=== PATIENT | female | born 1980 | race Caucasian/White ===

== ENCOUNTER 2017-03-28 21:48 | Emergency (ER) | payer OTHER ==
--- NOTE | 2017-03-28 22:52 | ED ---
Chest Pain HPI - General Chief Complaint: Abdominal Pain Stated Complaint: Abd Pain Time Seen by Provider: 03/28/17 22:28 Source: patient, family Mode of arrival: ambulatory Limitations: no limitations - History of Present Illness Initial Comments: Patient is a 37-year-old woman who presents to be evaluated for left upper chest pain. She states that it started 6 days ago now. She denies any inciting trauma. She states that she was at rest. Patient describes it as a constant, aching that is moderate intensity. The patient has not discovered any worsening or relieving factors and she also denies any associated symptoms. She does note that the chest wall is tender when she presses. Complaint: chest pain Onset/Timin -: days(s) Onset: during rest Pain Location: left chest Pain Radiation: back Severity: moderate Quality: aching Consistency: constant Improves With: nothing Worsens With: nothing Treatments Prior to Arrival: none - Related Data Home Medications Medication Instructions Recorded Confirmed Atorvastatin [Lipitor] 40 mg PO QAM 09/12/15 03/28/17 EPINEPHrine (Auto Inject) [Epipen] 1 injection IM DAILY PRN 09/12/15 03/28/17 Atomoxetine HCl [Strattera] 40 mg PO DAILY@1300 03/28/17 03/28/17 Atomoxetine HCl [Strattera] 60 mg PO DAILY 03/28/17 03/28/17 Omeprazole 20 mg PO DAILY 03/28/17 03/28/17 Phentermine HCl [Adipex-P] 37.5 mg PO QAM 03/28/17 03/28/17 glipiZIDE [Glucotrol] 2.5 mg PO DAILY 03/28/17 03/28/17 Previous Rx's Medication Instructions Recorded Ibuprofen [Motrin] 600 mg PO Q8HR PRN #20 tab 03/29/17 Allergies Allergy/AdvReac Type Severity Reaction Status Date / Time Penicillins Allergy Rash/Hives Verified 03/28/17 22:52 Sulfa (Sulfonamide Allergy Unknown Verified 03/28/17 22:52 Antibiotics) Review of Systems ROS Statement: Those systems with pertinent positive or pertinent negative responses have been documented in the HPI. ROS Other: All systems not noted in ROS Statement are negative. Constitutional: Denies: fever, chills, weakness Respiratory: Denies: cough, dyspnea Cardiovascular: Reports: chest pain. Denies: palpitations, orthopnea, edema, syncope Gastrointestinal: Denies: abdominal pain, nausea, vomiting, melena, hematochezia Genitourinary: Denies: dysuria, hematuria Musculoskeletal: Denies: back pain Skin: Denies: rash Neurological: Denies: headache, weakness, numbness EKG Findings - EKG Comments: EKG Findings:: Low voltage QRS complexes - EKG Results: EKG: interpreted by ALEXD, sinus rhythm (Rate approximate 73 bpm), normal ST/T - Blocks, [place], Hypertrophy, ST Abn: QRS axis and voltage: right axis deviation (+90 to +180) Past Medical History Past Medical History: Asthma, Diabetes Mellitus, Hyperlipidemia Additional Past Medical History / Comment(s): pre diabetic per pt History of Any Multi-Drug Resistant Organisms: None Reported Past Surgical History: Section, Cholecystectomy, Ear Surgery, Tubal Ligation Additional Past Surgical History / Comment(s): BILATERAL EAR TUBES; RECONSTRUCTION OF EAR DRUM OF RIGHT EAR. TUBAL WITH ESSURE. Past Anesthesia/Blood Transfusion Reactions: No Reported Reaction Past Psychological History: ADD/ADHD, Depression Smoking Status: Never smoker Past Alcohol Use History: None Reported Past Drug Use History: None Reported - Past Family History Mother Family Medical History: Coronary Artery Disease (CAD), CVA/TIA, Diabetes Mellitus General Exam Limitations: no limitations General appearance: alert, in no apparent distress, obese Head exam: Present: atraumatic, normocephalic Eye exam: Present: normal appearance. Absent: scleral icterus, conjunctival injection ENT exam: Present: normal oropharynx Neck exam: Present: normal inspection, full ROM Respiratory exam: Present: normal lung sounds bilaterally, chest wall tenderness. Absent: respiratory distress, wheezes, rales, rhonchi, stridor Cardiovascular Exam: Present: regular rate, normal rhythm, normal heart sounds. Absent: systolic murmur, diastolic murmur, rubs, gallop GI/Abdominal exam: Present: soft. Absent: distended, tenderness, guarding, rebound, mass Extremities exam: Present: normal inspection, normal capillary refill. Absent: pedal edema, calf tenderness Back exam: Present: normal inspection. Absent: CVA tenderness (R), CVA tenderness (L) Neurological exam: Present: alert Skin exam: Present: warm, dry, intact, normal color. Absent: rash, cyanosis, diaphoretic, erythema, petechiae, pallor, mottled Course Vital Signs 03/28/17 21:52 Temperature 97.7 F Pulse Rate 89 Respiratory 18 Rate Disposition Clinical Impression: Chest wall pain Disposition: HOME SELF-CARE Condition: Good Instructions: Chest Wall Pain (ED) Prescriptions: Ibuprofen [Motrin] 600 mg PO Q8HR PRN #20 tab PRN Reason: Pain Referrals: Victoriano Causey MD [Primary Care Provider] - 1-2 days
[2017-03-28 22:56] LABS: Basophils # (A) 0.1 k/uL (0-0.2); Basophils % (A) 1 %; CH 31.8; CHCM 33.7; Eosinophils # (A) 0.3 k/uL (0-0.7); Eosinophils % (A) 3 %; HCT 41.8 % (34.0-46.0); HGB 13.9 gm/dL (11.4-16.0); Luc # (Auto) 0.08; Luc % (Auto) 1; Lymphocytes # (A) 3.4 k/uL (1.0-4.8); Lymphocytes % (A) 36 %; MCH 31.7 pg (25.0-35.0); MCHC 33.4 g/dL (31.0-37.0); MCV 94.9 fL (80.0-100.0); Mean Platelet Volume 6.7; Monocytes # (A) 0.3 k/uL (0-1.0); Monocytes % (A) 3 %; Neutrophils # (A) 5.3 k/uL (1.3-7.7); Neutrophils % (A) 56 %; RDW 13.2 % (11.5-15.5); WBC 9.3 k/uL (3.8-10.6); WBC (Perox) 9.19
[2017-03-28 23:12] LABS: ALT 28 U/L (9-52); AST 15 U/L (14-36); Alkaline Phosphatase 94 U/L (38-126); Amylase 42 U/L (30-110); Anion Gap 10 mmol/L; Blood Urea Nitrogen 16 mg/dL (7-17); Calcium 9.4 mg/dL (8.4-10.2); Carbon Dioxide 21 mmol/L (22-30); Chloride 109 mmol/L (98-107); Glucose 143 mg/dL (74-99); Magnesium 1.9 mg/dL (1.6-2.3); Non-African American GFR(MDRD) >60 (>60 ml/min/1.73 sqM); Potassium 3.8 mmol/L (3.5-5.1); Sodium 140 mmol/L (137-145); Total Bilirubin 0.2 mg/dL (0.2-1.3); Total Protein 6.8 g/dL (6.3-8.2)
--- NOTE | 2017-03-28 23:12 | XR ---
EXAMINATION TYPE: XR chest 2V DATE OF EXAM: 03/28/2017 COMPARISON: NONE HISTORY: Chest pain TECHNIQUE: Frontal and lateral views of the chest are obtained. FINDINGS: Heart and mediastinum are normal. Lungs are clear. Diaphragm is normal. Bony thorax is int act. The pulmonary vascularity is normal. IMPRESSION: Normal chest
[2017-03-29 01:02] VITALS: BP 123/74; PULSE 90; RESP 16; TEMP 98
== END 2017-03-29 00:47 | disposition home or self-care (01) ==
LOC: EC 21:48
DX: R07.89 Other chest pain (principal); F90.9 Attention-deficit hyperactivity disorder, unspecified type; E66.9 Obesity, unspecified; E78.5 Hyperlipidemia, unspecified; Z90.49 Acquired absence of other specified parts of digestive tract; Z68.38 Body mass index [BMI] 38.0-38.9, adult; Z88.0 Allergy status to penicillin; Z88.2 Allergy status to sulfonamides; Z79.84 Long term (current) use of oral hypoglycemic drugs; Z79.899 Other long term (current) drug therapy
CPT/HCPCS: 36415; 71020; 80053; 82150; 83690; 83735; 84484; 85025; 85379; 93005; 99284

== ENCOUNTER 2017-12-22 13:11 | Emergency (ER) | payer OTHER ==
[2017-12-22 13:33] VITALS: BP 136/87; PULSE 86; RESP 18; TEMP 98
[2017-12-22] MEDS ORDERED: DIPH,PERTUS(ACELL)TETVAC-LF 0.5 ML VIAL IM ONE (13:46)
--- NOTE | 2017-12-22 13:51 | ED ---
General Adult HPI - General Chief complaint: Wound/Laceration Stated complaint: lac rt upper arm Time Seen by Provider: 12/22/17 13:33 Source: patient, RN notes reviewed Mode of arrival: ambulatory Limitations: no limitations - History of Present Illness Initial comments: Patient 37-year-old female presenting to the emergency room today with a chief complaint of a laceration to the left arm. She states she was using a knife cutting a tie when he slipped causing laceration to the upper arm. Patient states tetanus is not up-to-date. She denies any other complaints or symptoms at this time. Patient denies any recent fever, chills, shortness of breath, chest pain, back pain, abdominal pain, nausea or vomiting, headaches or visual changes, or any other complaints. - Related Data Home Medications Medication Instructions Recorded Confirmed Atorvastatin [Lipitor] 40 mg PO QAM 09/12/15 03/28/17 EPINEPHrine (Auto Inject) [Epipen] 1 injection IM DAILY PRN 09/12/15 03/28/17 Atomoxetine HCl [Strattera] 40 mg PO DAILY@1300 03/28/17 03/28/17 Atomoxetine HCl [Strattera] 60 mg PO DAILY 03/28/17 03/28/17 Omeprazole 20 mg PO DAILY 03/28/17 03/28/17 Phentermine HCl [Adipex-P] 37.5 mg PO QAM 03/28/17 03/28/17 glipiZIDE [Glucotrol] 2.5 mg PO DAILY 03/28/17 03/28/17 Previous Rx's Medication Instructions Recorded Ibuprofen [Motrin] 600 mg PO Q8HR PRN #20 tab 03/29/17 Cephalexin [Keflex] 500 mg PO Q12HR 7 Days cap 12/22/17 Allergies Allergy/AdvReac Type Severity Reaction Status Date / Time Sulfa (Sulfonamide Allergy Unknown Verified 12/22/17 13:33 Antibiotics) Review of Systems ROS Statement: Those systems with pertinent positive or pertinent negative responses have been documented in the HPI. ROS Other: All systems not noted in ROS Statement are negative. Past Medical History Past Medical History: Asthma, Diabetes Mellitus, Hyperlipidemia Additional Past Medical History / Comment(s): pre diabetic per pt History of Any Multi-Drug Resistant Organisms: None Reported Past Surgical History: Section, Cholecystectomy, Ear Surgery, Hysterectomy, Tubal Ligation Additional Past Surgical History / Comment(s): BILATERAL EAR TUBES; RECONSTRUCTION OF EAR DRUM OF RIGHT EAR. TUBAL WITH ESSURE. Past Anesthesia/Blood Transfusion Reactions: No Reported Reaction Past Psychological History: ADD/ADHD, Depression Smoking Status: Never smoker Past Alcohol Use History: None Reported Past Drug Use History: None Reported - Past Family History Mother Family Medical History: Coronary Artery Disease (CAD), CVA/TIA, Diabetes Mellitus General Exam - General Exam Comments Initial Comments: General: The patient is awake and alert, in no distress, and does not appear acutely ill. Neck: The neck is supple, there is no tenderness or JVD. Musculoskeletal: Full range of motion. Sensation intact. Radial pulse 2+. Strength 5/5. Neurological: A&O x 3. CN II-XII intact, There are no obvious motor or sensory deficits. Coordination appears grossly intact. Speech is normal. Skin: 1 cm linear laceration to the left upper arm. Psychiatric: Normal mood and affect. Limitations: no limitations Course Vital Signs 12/22/17 13:28 Temperature 98.0 F Pulse Rate 86 Respiratory 18 Rate Blood Pressure 136/87 O2 Sat by Pulse 99 Oximetry Procedures - Procedures Initial comment: 1 cm linear laceration to the left upper arm. No active bleeding.The skin was anesthetized with 1% lidocaine. The laceration was then cleansed with Betadine and irrigated with normal saline. The wound was inspected, and there was no evidence of injury to deep structures. No foreign body was noted in the wound. A total of 2 skin sutures were placed utilizing 4-0 nylon. Disposition Clinical Impression: Laceration Disposition: HOME SELF-CARE Condition: Good Instructions: Laceration (ED) Additional Instructions: Please return to the emergency room in 8-10 days to have sutures removed. Please watch for any signs of infection which may include increased pain, swelling, redness, fever or chills. Please return to emergency room for any signs of infection do occur. Please use clean soap and water over the area to prevent scabbing over your stitches. Please leave wound covered for the first 24-48 hours and then leave wound open to air. Please return to the emergency room for any other concerns. Prescriptions: Cephalexin [Keflex] 500 mg PO Q12HR 7 Days cap Is patient prescribed a controlled substance at d/c from ED?: No Referrals: Victoriano Causey MD [Primary Care Provider] - 1-2 days Time of Disposition: 13:50
== END 2017-12-22 14:14 | disposition home or self-care (01) ==
LOC: EC 13:11
DX: S41.112A Laceration without foreign body of left upper arm, initial encounter (principal); E11.9 Type 2 diabetes mellitus without complications; E78.5 Hyperlipidemia, unspecified; F90.9 Attention-deficit hyperactivity disorder, unspecified type; F32.9 Major depressive disorder, single episode, unspecified; Z23 Encounter for immunization; Z79.84 Long term (current) use of oral hypoglycemic drugs; Z79.899 Other long term (current) drug therapy; Z88.2 Allergy status to sulfonamides; W26.0XXA Contact with knife, initial encounter
CPT/HCPCS: 12001; 90471; 90715; 99282

== ENCOUNTER 2018-04-08 00:28 | Emergency (ER) | payer OTHER ==
[2018-04-08] MEDS ORDERED: KETOROLAC 30 MG/ML 1 ML VIAL IVP STA (01:09)
[2018-04-08] MEDS ORDERED: SODIUM CHLORIDE 0.9% 1,000 ML IV ONE (01:09)
--- NOTE | 2018-04-08 01:40 | ED ---
Abdominal Pain HPI - General Chief Complaint: Abdominal Pain Stated Complaint: Kidney infection Time Seen by Provider: 04/08/18 01:04 Source: patient Mode of arrival: ambulatory Limitations: no limitations - History of Present Illness Initial Comments: This is a 38-year-old female who presents emergency department for left lower quadrant abdominal pain. She states that it initially started with left lower back pain for the last 3 weeks however tonight she states the pain has worsened and is now located in her left lower quadrant. She does admit to some dysuria and urinary frequency as well. She does not eyes any pain in the flank. No fevers or chills. No nausea or vomiting or diarrhea. No vaginal bleeding or discharge. She states that the pain got severe enough that she wanted to be evaluated. No other acute complaints. - Related Data Home Medications Medication Instructions Recorded Confirmed Atorvastatin [Lipitor] 40 mg PO QAM 09/12/15 03/28/17 EPINEPHrine (Auto Inject) [Epipen] 1 injection IM DAILY PRN 09/12/15 03/28/17 Atomoxetine HCl [Strattera] 40 mg PO DAILY@1300 03/28/17 03/28/17 Atomoxetine HCl [Strattera] 60 mg PO DAILY 03/28/17 03/28/17 Omeprazole 20 mg PO DAILY 03/28/17 03/28/17 Phentermine HCl [Adipex-P] 37.5 mg PO QAM 03/28/17 03/28/17 glipiZIDE [Glucotrol] 2.5 mg PO DAILY 03/28/17 03/28/17 Previous Rx's Medication Instructions Recorded Ibuprofen [Motrin] 600 mg PO Q8HR PRN #20 tab 03/29/17 Cephalexin [Keflex] 500 mg PO Q12HR 7 Days cap 12/22/17 Nitrofurantoin Monohyd/M-Cryst 100 mg PO Q12HR #13 cap 04/08/18 [Macrobid] Allergies Allergy/AdvReac Type Severity Reaction Status Date / Time Sulfa (Sulfonamide Allergy Unknown Verified 04/08/18 00:48 Antibiotics) Review of Systems ROS Statement: Those systems with pertinent positive or pertinent negative responses have been documented in the HPI. ROS Other: All systems not noted in ROS Statement are negative. Past Medical History Past Medical History: Asthma, Diabetes Mellitus, Hyperlipidemia Additional Past Medical History / Comment(s): pre diabetic per pt History of Any Multi-Drug Resistant Organisms: None Reported Past Surgical History: Section, Cholecystectomy, Ear Surgery, Hysterectomy, Tubal Ligation Additional Past Surgical History / Comment(s): BILATERAL EAR TUBES; RECONSTRUCTION OF EAR DRUM OF RIGHT EAR. TUBAL WITH ESSURE. Past Anesthesia/Blood Transfusion Reactions: No Reported Reaction Past Psychological History: ADD/ADHD, Depression Smoking Status: Never smoker Past Alcohol Use History: None Reported Past Drug Use History: None Reported - Past Family History Mother Family Medical History: Coronary Artery Disease (CAD), CVA/TIA, Diabetes Mellitus General Exam - General Exam Comments Initial Comments: Constitutional: Awake alert Appears comfortable Head: Normocephalic atraumatic Eyes: no conjunctival injection No scleral icterus EOMI Neck: No JVD Supple Heart: Regular rate rhythm normal S1-S2 no murmurs Lungs: Clear to auscultation bilaterally No wheezing No rales Abdomen: Soft nondistended tenderness in the left lower quadrant without rebound or guarding Extremities: Non edematous DP pulses intact Radial pulses intact Muscle skeletal: Patient has some tenderness to her left lower back. No midline tenderness. Neuro: A&Ox3 No focal neurologic deficits Psych: Appropriate mood and affect Limitations: no limitations Course Vital Signs 04/08/18 00:44 Temperature 98.2 F Pulse Rate 106 H Respiratory 16 Rate Blood Pressure 133/90 O2 Sat by Pulse 95 Oximetry Medical Decision Making - Medical Decision Making This is a 38-year-old female who presents emergency department for left lower back pain and left lower quadrant pain. She also had dysuria. The patient was found have urinary tract infection on her blood work. CT of the abdomen was unremarkable. The patient was improved after Toradol. She will be sent home on Macrobid. She is ALLERGIC to sulfa. The patient understood and agreed with this plan. Instructed to return should worsening pain, fevers, chills, or any new or worsening symptoms. All questions answered. - Lab Data Result diagrams: 04/08/18 01:15 04/08/18 01:15 Lab Results 04/08/18 04/08/18 04/08/18 Range/Units 01:15 01:15 01:15 WBC 10.0 (3.8-10.6) k/uL RBC 4.79 (3.80-5.40) m/uL Hgb 15.6 (11.4-16.0) gm/dL Hct 44.5 (34.0-46.0) % MCV 92.8 (80.0-100.0) fL MCH 32.6 (25.0-35.0) pg MCHC 35.1 (31.0-37.0) g/dL RDW 13.6 (11.5-15.5) % Plt Count 329 (150-450) k/uL Neutrophils % 53 % Lymphocytes % 39 % Monocytes % 4 % Eosinophils % 2 % Basophils % 1 % Neutrophils # 5.3 (1.3-7.7) k/uL Lymphocytes # 3.9 (1.0-4.8) k/uL Monocytes # 0.4 (0-1.0) k/uL Eosinophils # 0.2 (0-0.7) k/uL Basophils # 0.1 (0-0.2) k/uL Sodium 138 (137-145) mmol/L Potassium 4.1 (3.5-5.1) mmol/L Chloride 103 (98-107) mmol/L Carbon Dioxide 27 (22-30) mmol/L Anion Gap 8 mmol/L BUN 23 H (7-17) mg/dL Creatinine 0.83 (0.52-1.04) mg/dL Est GFR (CKD-EPI)AfAm >90 (>60 ml/min/1.73 sqM) Est GFR (CKD-EPI)NonAf >90 (>60 ml/min/1.73 sqM) Glucose 170 H (74-99) mg/dL Calcium 10.1 (8.4-10.2) mg/dL Total Bilirubin 0.6 (0.2-1.3) mg/dL AST 90 H (14-36) U/L ALT 113 H (9-52) U/L Alkaline Phosphatase 88 (38-126) U/L Total Protein 7.9 (6.3-8.2) g/dL Albumin 4.4 (3.5-5.0) g/dL Urine Color Urine Appearance (Clear) Urine pH (5.0-8.0) Ur Specific [place] (1.001-1.035) Urine Protein (Negative) Urine Glucose (UA) (Negative) Urine Ketones (Negative) Urine Blood (Negative) Urine Nitrite (Negative) Urine Bilirubin (Negative) Urine Urobilinogen (<2.0) mg/dL Ur Leukocyte Esterase (Negative) Urine RBC (0-5) /hpf Urine WBC (0-5) /hpf Ur Squamous Epith Cells (0-4) /hpf Hyaline Casts (0-2) /lpf Urine Mucus (None) /hpf Urine HCG, Qual Not Detected (Not Detectd) 04/08/18 Range/Units 01:15 WBC (3.8-10.6) k/uL RBC (3.80-5.40) m/uL Hgb (11.4-16.0) gm/dL Hct (34.0-46.0) % MCV (80.0-100.0) fL MCH (25.0-35.0) pg MCHC (31.0-37.0) g/dL RDW (11.5-15.5) % Plt Count (150-450) k/uL Neutrophils % % Lymphocytes % % Monocytes % % Eosinophils % % Basophils % % Neutrophils # (1.3-7.7) k/uL Lymphocytes # (1.0-4.8) k/uL Monocytes # (0-1.0) k/uL Eosinophils # (0-0.7) k/uL Basophils # (0-0.2) k/uL Sodium (137-145) mmol/L Potassium (3.5-5.1) mmol/L Chloride (98-107) mmol/L Carbon Dioxide (22-30) mmol/L Anion Gap mmol/L BUN (7-17) mg/dL Creatinine (0.52-1.04) mg/dL Est GFR (CKD-EPI)AfAm (>60 ml/min/1.73 sqM) Est GFR (CKD-EPI)NonAf (>60 ml/min/1.73 sqM) Glucose (74-99) mg/dL Calcium (8.4-10.2) mg/dL Total Bilirubin (0.2-1.3) mg/dL AST (14-36) U/L ALT (9-52) U/L Alkaline Phosphatase (38-126) U/L Total Protein (6.3-8.2) g/dL Albumin (3.5-5.0) g/dL Urine Color Yellow Urine Appearance Cloudy H (Clear) Urine pH 5.5 (5.0-8.0) Ur Specific [place] 1.034 (1.001-1.035) Urine Protein 1+ H (Negative) Urine Glucose (UA) Trace H (Negative) Urine Ketones Trace H (Negative) Urine Blood Trace H (Negative) Urine Nitrite Negative (Negative) Urine Bilirubin Negative (Negative) Urine Urobilinogen 3.0 (<2.0) mg/dL Ur Leukocyte Esterase Large H (Negative) Urine RBC 4 (0-5) /hpf Urine WBC 23 H (0-5) /hpf Ur Squamous Epith Cells 42 H (0-4) /hpf Hyaline Casts 8 H (0-2) /lpf Urine Mucus Many H (None) /hpf Urine HCG, Qual (Not Detectd) Disposition Clinical Impression: UTI (urinary tract infection) Disposition: HOME SELF-CARE Condition: Stable Instructions: Urinary Tract Infection in Women (DC) Prescriptions: Nitrofurantoin Monohyd/M-Cryst [Macrobid] 100 mg PO Q12HR #13 cap Is patient prescribed a controlled substance at d/c from ED?: No Referrals: Victoriano Causey MD [Primary Care Provider] - 1-2 days
[2018-04-08 01:41] LABS: Appearance,Urine Cloudy (Clear); Bilirubin,Urine Negative (Negative); Blood,Urine Trace (Negative); Color,Urine Yellow; Glucose,Urine (UA) Trace (Negative); Hyaline Casts,Urine 8 /lpf (0-2); Ketones,Urine Trace (Negative); Leukocyte Esterase,Urine Large (Negative); Mucus,Urine Many /hpf; Nitrite,Urine Negative (Negative); PH, Urine 5.5 (5.0-8.0); Protein,Urine 1+ (Negative); RBC,Urine 4 /hpf (0-5); Specific Gravity,Urine 1.034 (1.001-1.035); Squamous Epithelial Cell,Urine 42 /hpf (0-4)
[2018-04-08 01:45] LABS: Basophils # (A) 0.1 k/uL (0-0.2); Basophils % (A) 1 %; Eosinophils # (A) 0.2 k/uL (0-0.7); Eosinophils % (A) 2 %; HCT 44.5 % (34.0-46.0); HGB 15.6 gm/dL (11.4-16.0); Lymphocytes # (A) 3.9 k/uL (1.0-4.8); Lymphocytes % (A) 39 %; MCH 32.6 pg (25.0-35.0); MCHC 35.1 g/dL (31.0-37.0); MCV 92.8 fL (80.0-100.0); Mean Platelet Volume 6.4; Monocytes # (A) 0.4 k/uL (0-1.0); Monocytes % (A) 4 %; Neutrophils # (A) 5.3 k/uL (1.3-7.7); Neutrophils % (A) 53 %; Platelet Count 329 k/uL (150-450); RBC 4.79 m/uL (3.80-5.40); RDW 13.6 % (11.5-15.5)
[2018-04-08 01:49] LABS: ALT 113 U/L (9-52); AST 90 U/L (14-36); Albumin 4.4 g/dL (3.5-5.0); Alkaline Phosphatase 88 U/L (38-126); Anion Gap 8 mmol/L; Blood Urea Nitrogen 23 mg/dL (7-17); Calcium 10.1 mg/dL (8.4-10.2); Carbon Dioxide 27 mmol/L (22-30); Chloride 103 mmol/L (98-107); Glucose 170 mg/dL (74-99); Potassium 4.1 mmol/L (3.5-5.1); Sodium 138 mmol/L (137-145); Total Bilirubin 0.6 mg/dL (0.2-1.3); Total Protein 7.9 g/dL (6.3-8.2)
--- NOTE | 2018-04-08 02:01 | CT ---
EXAMINATION TYPE: CT abdomen pelvis wo con DATE OF EXAM: 04/08/2018 COMPARISON: None HISTORY: LLQ Pain CT DLP: 1214 mGycm Automated exposure control for dose reduction was used. TECHNIQUE: Helical acquisition of images was performed from the lung bases through the pelvis. FINDINGS: Lung bases are clear of consolidation. There is no pleural effusion. Heart size is normal. There is n o pericardial effusion. There is small hiatal hernia. Stomach appears normal. There is probably some fatty infiltration of the liver. Spleen appears normal. There is no pancreatic mass. There are clips from cholecystectomy. Bile ducts are not dilated. There is no adrenal mass. Kidneys have normal size and contour. There is no hydronephrosis. Ureters a re not dilated. There is no retroperitoneal adenopathy. The appendix appears normal. Bladder distends smoothly. There is no inguinal hernia. There is no free fluid in the pelvis. There i s hysterectomy. There are a few sigmoid diverticula. There is no evidence of diverticulitis. There is no mesenteric edema or adenopathy. There is no evidence of a bowel obstruction. There is no evidence of free air. The bony pelvis appears intact. Lumbar spine is intact. There is no compression fractur e. IMPRESSION: NO RENAL STONE OR OBSTRUCTION. NORMAL APPENDIX. NO SIGN OF ACUTE ABDOMEN AND PELVIS. MINIMAL FATTY IN FILTRATION OF THE LIVER.
[2018-04-08] MEDS ORDERED: NITROFURANTOIN MONOHYD/M-CRYST 100 MG CAP PO STA (02:22)
[2018-04-08 02:40] VITALS: BP 112/56; PULSE 96; RESP 18; TEMP 98.3
== END 2018-04-08 02:40 | disposition home or self-care (01) ==
LOC: EC 00:28
DX: N39.0 Urinary tract infection, site not specified (principal); E78.5 Hyperlipidemia, unspecified; F90.9 Attention-deficit hyperactivity disorder, unspecified type; F32.9 Major depressive disorder, single episode, unspecified; Z88.2 Allergy status to sulfonamides; Z79.84 Long term (current) use of oral hypoglycemic drugs; Z79.899 Other long term (current) drug therapy; Z90.49 Acquired absence of other specified parts of digestive tract
CPT/HCPCS: 36415; 80053; 85025; 81001; 81025; 87086; 74176; 99284; 96374; 96361; J1885

== ENCOUNTER 2018-04-12 16:19 | Emergency (ER) | payer OTHER ==
[2018-04-12 16:32] VITALS: TEMP 97.6
--- NOTE | 2018-04-12 16:59 | ED ---
General Adult HPI - General Chief complaint: Back Pain/Injury Stated complaint: Lower back pain Time Seen by Provider: 04/12/18 16:38 Source: patient, RN notes reviewed Mode of arrival: ambulatory Limitations: no limitations - History of Present Illness Initial comments: Patient is a 38-year-old female who presents the emergency department with complaints of left lower back pain for the past 4 weeks. Patient was here 4 days ago on 04/08/2018 and was found to have a UTI and put on Macrobid. Patient reports that she has been taking the Macrobid as prescribed for 5 days. She reports that her urinary symptoms and LLQ pain have resolved, but the back pain has remained. Patient denies any recent fever, night sweats, shortness of breath, chest pain, abdominal pain, numbness or tingling, saddle anesthesia, bowel or bladder incontinence, radiation of pain, dysuria or hematuria, constipation or diarrhea, headaches or visual changes, or any other complaints. - Related Data Home Medications Medication Instructions Recorded Confirmed Atorvastatin [Lipitor] 40 mg PO QAM 09/12/15 03/28/17 EPINEPHrine (Auto Inject) [Epipen] 1 injection IM DAILY PRN 09/12/15 03/28/17 Atomoxetine HCl [Strattera] 40 mg PO DAILY@1300 03/28/17 03/28/17 Atomoxetine HCl [Strattera] 60 mg PO DAILY 03/28/17 03/28/17 Omeprazole 20 mg PO DAILY 03/28/17 03/28/17 Phentermine HCl [Adipex-P] 37.5 mg PO QAM 03/28/17 03/28/17 glipiZIDE [Glucotrol] 2.5 mg PO DAILY 03/28/17 03/28/17 Previous Rx's Medication Instructions Recorded Ibuprofen [Motrin] 600 mg PO Q8HR PRN #20 tab 03/29/17 Cephalexin [Keflex] 500 mg PO Q12HR 7 Days cap 12/22/17 Nitrofurantoin Monohyd/M-Cryst 100 mg PO Q12HR #13 cap 04/08/18 [Macrobid] Allergies Allergy/AdvReac Type Severity Reaction Status Date / Time Penicillins Allergy Unknown Verified 04/12/18 16:33 Sulfa (Sulfonamide Allergy Unknown Verified 04/12/18 16:32 Antibiotics) Review of Systems ROS Statement: Those systems with pertinent positive or pertinent negative responses have been documented in the HPI. ROS Other: All systems not noted in ROS Statement are negative. Past Medical History Past Medical History: Asthma, Diabetes Mellitus, Hyperlipidemia Additional Past Medical History / Comment(s): pre diabetic per pt History of Any Multi-Drug Resistant Organisms: None Reported Past Surgical History: Section, Cholecystectomy, Ear Surgery, Hysterectomy, Tubal Ligation Additional Past Surgical History / Comment(s): BILATERAL EAR TUBES; RECONSTRUCTION OF EAR DRUM OF RIGHT EAR. TUBAL WITH ESSURE. Past Anesthesia/Blood Transfusion Reactions: No Reported Reaction Past Psychological History: ADD/ADHD, Depression Smoking Status: Never smoker Past Alcohol Use History: None Reported Past Drug Use History: None Reported - Past Family History Mother Family Medical History: Coronary Artery Disease (CAD), CVA/TIA, Diabetes Mellitus General Exam Limitations: no limitations General appearance: alert, in no apparent distress Head exam: Present: atraumatic, normocephalic Eye exam: Present: normal appearance Respiratory exam: Present: normal lung sounds bilaterally Cardiovascular Exam: Present: regular rate, normal rhythm GI/Abdominal exam: Present: soft, other (No tenderness to palpation. Nondistended.) Back exam: Present: normal inspection, full ROM, tenderness (Left lower back pain to palpation. No midline pain.) Neurological exam: Present: alert, oriented X3 Psychiatric exam: Present: normal affect, normal mood Skin exam: Present: warm, dry Course Vital Signs 04/12/18 16:30 Temperature 97.6 F Pulse Rate 107 H Respiratory 20 Rate Blood Pressure 159/81 O2 Sat by Pulse 96 Oximetry Medical Decision Making - Medical Decision Making Patient was here 04/08/2018. CT abdomen/pelvis from 04/08/2018 reviewed ( negative CT). She continues to have left lower back pain however her left lower quadrants pain and urinary symptoms have resolved. Patient given Toradol here, which improved her pain. UA is negative for UTI. Urine culture from reviewed an found to be negative. Case discussed in detail with attending physician Dr. Walker. - Lab Data Lab Results 04/12/18 Range/Units 17:15 Urine Color Yellow Urine Appearance Cloudy H (Clear) Urine pH 5.0 (5.0-8.0) Ur Specific [place] 1.019 (1.001-1.035) Urine Protein Negative (Negative) Urine Glucose (UA) Negative (Negative) Urine Ketones Negative (Negative) Urine Blood Negative (Negative) Urine Nitrite Negative (Negative) Urine Bilirubin Negative (Negative) Urine Urobilinogen <2.0 (<2.0) mg/dL Ur Leukocyte Esterase Negative (Negative) Urine WBC 1 (0-5) /hpf Ur Squamous Epith Cells 3 (0-4) /hpf Urine Bacteria Rare H (None) /hpf Hyaline Casts 1 (0-2) /lpf Urine Mucus Occasional H (None) /hpf Disposition Clinical Impression: Back pain Disposition: HOME SELF-CARE Condition: Good Instructions: Back Pain (ED) Additional Instructions: Follow-up with PCP in 2 days. Return to emergency department if symptoms worsen or any other concerns. Is patient prescribed a controlled substance at d/c from ED?: No Referrals: Victoriano Causey MD [Primary Care Provider] - 1-2 days Time of Disposition: 18:12
[2018-04-12] MEDS ORDERED: KETOROLAC 60 MG/2 ML VIAL IM STA (17:37)
[2018-04-12 17:42] LABS: Appearance,Urine Cloudy (Clear); Bacteria,Urine Rare /hpf; Bilirubin,Urine Negative (Negative); Blood,Urine Negative (Negative); Color,Urine Yellow; Glucose,Urine (UA) Negative (Negative); Hyaline Casts,Urine 1 /lpf (0-2); Ketones,Urine Negative (Negative); Leukocyte Esterase,Urine Negative (Negative); Mucus,Urine Occasional /hpf; Nitrite,Urine Negative (Negative); Protein,Urine Negative (Negative); Specific Gravity,Urine 1.019 (1.001-1.035); Squamous Epithelial Cell,Urine 3 /hpf (0-4); Urobilinogen,Urine <2.0 mg/dL (<2.0); WBC,Urine 1 /hpf (0-5)
[2018-04-12 18:17] VITALS: BP 136/79; PULSE 88; RESP 16
== END 2018-04-12 18:20 | disposition home or self-care (01) ==
LOC: EC 16:19
DX: M54.5 Low back pain (principal); E11.9 Type 2 diabetes mellitus without complications; E78.5 Hyperlipidemia, unspecified; F90.9 Attention-deficit hyperactivity disorder, unspecified type; F32.9 Major depressive disorder, single episode, unspecified; Z79.84 Long term (current) use of oral hypoglycemic drugs; Z79.899 Other long term (current) drug therapy; Z88.0 Allergy status to penicillin; Z88.2 Allergy status to sulfonamides; Z90.710 Acquired absence of both cervix and uterus
CPT/HCPCS: 81001; 99284; 96372; J1885

== ENCOUNTER 2018-08-11 20:42 | Emergency (ER) | payer OTHER ==
[2018-08-11] MEDS ORDERED: SODIUM CHLORIDE 0.9% 500 ML 500 ML IV ONE (21:21)
[2018-08-11 21:32] LABS: Basophils # (A) 0.1 k/uL (0-0.2); Basophils % (A) 1 %; Eosinophils # (A) 0.2 k/uL (0-0.7); Eosinophils % (A) 2 %; HCT 43.3 % (34.0-46.0); HGB 14.7 gm/dL (11.4-16.0); Lymphocytes # (A) 3.3 k/uL (1.0-4.8); Lymphocytes % (A) 34 %; MCH 31.2 pg (25.0-35.0); MCV 91.9 fL (80.0-100.0); Mean Platelet Volume 6.5; Monocytes # (A) 0.3 k/uL (0-1.0); Monocytes % (A) 3 %; Neutrophils # (A) 5.8 k/uL (1.3-7.7); Neutrophils % (A) 59 %; Platelet Count 265 k/uL (150-450); RBC 4.71 m/uL (3.80-5.40); RDW 12.8 % (11.5-15.5); WBC 9.8 k/uL (3.8-10.6)
[2018-08-11 21:43] LABS: ALT 116 U/L (9-52); AST 91 U/L (14-36); Albumin 4.2 g/dL (3.5-5.0); Alkaline Phosphatase 97 U/L (38-126); Anion Gap 11 mmol/L; Blood Urea Nitrogen 12 mg/dL (7-17); Calcium 9.6 mg/dL (8.4-10.2); Carbon Dioxide 23 mmol/L (22-30); Chloride 104 mmol/L (98-107); Glucose 263 mg/dL (74-99); Lipase 127 U/L (23-300); Sodium 138 mmol/L (137-145); Total Bilirubin 0.9 mg/dL (0.2-1.3); Total Protein 6.9 g/dL (6.3-8.2)
--- NOTE | 2018-08-11 22:41 | CT ---
EXAM: CT Abdomen and Pelvis With Intravenous Contrast CLINICAL HISTORY: Pain TECHNIQUE: Axial computed tomography images of the abdomen and pelvis with intravenous contrast. CTDI is 0.085, 0.085, 19.1, 19 mGy and DLP is 1964. 4 mGy-cm. This CT exam was performed using one or more of the following dose reduction techniques: automated exposure control, adjustment of the mA and/or kV according to patient size, and/or use of iterative reconstruction technique. COMPARISON: No relevant prior studies available. FINDINGS: Lung bases: Dependent atelectasis. ABDOMEN: Liver: Decreased attenuation of the liver suggesting hepatic steatosis. Gallbladder and bile ducts: Gallbladder is surgically absent. Pancreas: Unremarkable. Spleen: Unremarkable. Adrenals: Unremarkable. Kidneys and ureters: Unremarkable. Stomach and bowel: Unremarkable. PELVIS: Appendix: Appendix is unremarkable. Bladder: Unremarkable. Reproductive: Uterus is surgically absent. Prominent follicles within both ovaries. ABDOMEN and PELVIS: Intraperitoneal space: Unremarkable. Bones/joints: No acute fracture. No dislocation. Soft tissues: Unremarkable. Vasculature: Unremarkable. No abdominal aortic aneurysm. Lymph nodes: Unremarkable. IMPRESSION: No acute findings.
[2018-08-11 23:31] LABS: Appearance,Urine Clear (Clear); Bilirubin,Urine Negative (Negative); Blood,Urine Negative (Negative); Color,Urine Yellow; Glucose,Urine (UA) 4+ (Negative); Ketones,Urine Negative (Negative); Leukocyte Esterase,Urine Negative (Negative); Nitrite,Urine Negative (Negative); PH, Urine 5.5 (5.0-8.0); Protein,Urine Trace (Negative); Specific Gravity,Urine 1.028 (1.001-1.035); Urobilinogen,Urine <2.0 mg/dL (<2.0)
--- NOTE | 2018-08-11 23:38 | ED ---
Abdominal Pain HPI - General Chief Complaint: Abdominal Pain Stated Complaint: Lower rt abd pain Time Seen by Provider: 08/11/18 21:00 Source: patient Mode of arrival: ambulatory Limitations: no limitations - History of Present Illness Initial Comments: 38-year-old female was in today for chief complaint of right lower abdominal pain that started at 9 AM. Patient states she was at work when she is sitting in a recliner when she began experiencing right lower abdominal pain. Patient states she has had a partial hysterectomy and that this did not feel ovarian in nature. Patient states she did have a small amount of hematuria in her urine this morning. Patient states she has had vomiting and softer stools than normal. Patient states she's had a told to episodes of emesis denies hematemesis. Patient states her stool was brown. Denies hematochezia or melena. Patient denies fever, chills chest pain, dyspepsia, dyspnea upon exertion, recent travel, sick contacts. Patient states she has had some dysuria she denies vaginal discharge. Patient states she ate [place] prior to arrival. Upon arrival patient appears well no signs of acute distress. No protective postures or squirming. Vital signs within normal limits. Patient well-appear ing nontoxic. Remaining review of systems negative, patient denies any recent back pain, numbness or tingling, headaches or visual changes, or any other complaints. - Related Data Home Medications Medication Instructions Recorded Confirmed Atorvastatin [Lipitor] 40 mg PO QAM 09/12/15 08/11/18 Cefdinir [Omnicef] 300 mg PO Q12HR 08/11/18 08/11/18 Lisdexamfetamine Dimesylate 60 mg PO QAM 08/11/18 08/11/18 [Vyvanse] QUEtiapine [SEROquel] 100 mg PO HS 08/11/18 08/11/18 buPROPion XL [Wellbutrin Xl] 150 mg PO DAILY 08/11/18 08/11/18 glipiZIDE [Glucotrol] 10 mg PO AC-BRKFST 08/11/18 08/11/18 metFORMIN HCL [Glucophage] 500 mg PO TID 08/11/18 08/11/18 Allergies Allergy/AdvReac Type Severity Reaction Status Date / Time Penicillins Allergy Unknown Verified 08/11/18 21:12 Sulfa (Sulfonamide Allergy Unknown Verified 08/11/18 21:12 Antibiotics) Review of Systems ROS Statement: Those systems with pertinent positive or pertinent negative responses have been documented in the HPI. ROS Other: All systems not noted in ROS Statement are negative. Past Medical History Past Medical History: Asthma, Diabetes Mellitus, Hyperlipidemia Additional Past Medical History / Comment(s): pre diabetic per pt History of Any Multi-Drug Resistant Organisms: None Reported Past Surgical History: Section, Cholecystectomy, Ear Surgery, Hysterectomy, Tubal Ligation Additional Past Surgical History / Comment(s): BILATERAL EAR TUBES; RECONSTRUCTION OF EAR DRUM OF RIGHT EAR. TUBAL WITH ESSURE. Past Anesthesia/Blood Transfusion Reactions: No Reported Reaction Past Psychological History: ADD/ADHD, Depression Smoking Status: Never smoker Past Alcohol Use History: None Reported Past Drug Use History: None Reported - Past Family History Mother Family Medical History: Coronary Artery Disease (CAD), CVA/TIA, Diabetes Jabari seymour General Exam - General Exam Comments Initial Comments: General: The patient is awake and alert, in no distress, and does not appear acutely ill. Eye: +3 mm pupils are equal, round and reactive to light, extra-ocular movements are intact. No nystagmus. There is normal conjunctiva bilaterally. No signs of icterus. Ears, nose, mouth and throat: There are moist mucous membranes and no oral lesions. Neck: The neck is supple, there is no tenderness or JVD. Cardiovascular: There is a regular rate and rhythm. No murmur, rub or gallop is appreciated. Respiratory: Lungs are clear to auscultation, respirations are non-labored, breath sounds are equal. No wheezes, stridor, rales, or rhonchi. Gastrointestinal: No noted diaphoresis, jaundice, pallor, protecting postures or squirming. Symmetrical pigmentation of abdomen without signs of inflammation. Umbilicus mildline, inverted without swelling. No dilated veins. Abdomen contour obese, no noted abdominal distention. No visible masses. No peristalsis, aortic pulsations, or ventral hernia. Bowel sounds audible in all 4 quadrants, unremarkable. No friction rubs or venous hums. No epigastic, hepatic or abdominal bruits. Tenderness to deep palpation of the right lower quadrant, no rigidity or guarding. Liver edge, not palpable. Spleen edge, right and left kidney not palpable. Superior bladder margin non-tender. Special Testing: Negative [place], Rovsing, McBurney, Lucy, cutaneous hyperesthesia. Ilio psoas and obturator tests negative bilaterally. Negative Heel Jar test. No CVA tenderness. Digital rectal exam deferred. Negative arciniega turners or cullens sign Musculoskeletal: Normal ROM, no tenderness. Strength 5/5. Sensation intact. Pulses equal bilaterally 2+. Neurological: A&O x 3. CN II-XII intact, There are no obvious motor or sensory deficits. Coordination appears grossly intact. Speech is normal. Skin: Skin is warm and dry and no rashes or lesions are noted. Psychiatric: Cooperative, appropriate mood & affect, normal judgment. Limitations: no limitations Course Vital Signs 08/11/18 08/11/18 20:55 23:49 Temperature 97.6 F 98.3 F Pulse Rate 87 84 Respiratory 18 19 Rate Blood Pressure 138/79 100/71 O2 Sat by Pulse 96 96 Oximetry Medical Decision Making - Medical Decision Making 38-year-old female presenting for right lower abdominal pain x 1 day. Patient had [place] food just prior to arrival. Tolerating by mouth intake. Stating pain began around 9 AM. Patient ambulatory without difficulty. Abdominal exam revealed tenderness to the right lower quadrant. No lower pelvic tenderness. Patient denies vaginal discharge. Hematuria. CT (-). Laboratory elevated transaminases however upon chart review these appear to be patient's baseline. Most likely due to hepatic steatosis. Urinalysis revealed glucose, patient's b lood glucose elevated. No evidence of ketones or concern for DKA. At this time upon repeat abdominal exam no signs of acute abdomen is unclear the etiology of patient's abdominal pain most likely viral syndrome. At this time feel patient is stable for discharge with strict return parameters for worsening symptoms. I discussed with attending provider Dr. James laboratory studies, history, an d PE agreeable with plan of care and patients discharge. Patient is agreeable to discharge, aware of all return parameters. Denied questions at this time. - Lab Data Result diagrams: 08/11/18 21:18 08/11/18 21:18 Lab Results 08/11/18 08/11/18 08/11/18 Range/Units 21:18 21:18 21:18 WBC 9.8 (3.8-10.6) k/uL RBC 4.71 (3.80-5.40) m/uL Hgb 14.7 (11.4-16.0) gm/dL Hct 43.3 (34.0-46.0) % MCV 91.9 (80.0-100.0) fL MCH 31.2 (25.0-35.0) pg MCHC 34.0 (31.0-37.0) g/dL RDW 12.8 (11.5-15.5) % Plt Count 265 (150-450) k/uL Neutrophils % 59 % Lymphocytes % 34 % Monocytes % 3 % Eosinophils % 2 % Basophils % 1 % Neutrophils # 5.8 (1.3-7.7) k/uL Lymphocytes # 3.3 (1.0-4.8) k/uL Monocytes # 0.3 (0-1.0) k/uL Eosinophils # 0.2 (0-0.7) k/uL Basophils # 0.1 (0-0.2) k/uL Sodium 138 (137-145) mmol/L Potassium 4.0 (3.5-5.1) mmol/L Chloride 104 (98-107) mmol/L Carbon Dioxide 23 (22-30) mmol/L Anion Gap 11 mmol/L BUN 12 (7-17) mg/dL Creatinine 0.52 (0.52-1.04) mg/dL Est GFR (CKD-EPI)AfAm >90 (>60 ml/min/1.73 sqM) Est GFR (CKD-EPI)NonAf >90 (>60 ml/min/1.73 sqM) Glucose 263 H (74-99) mg/dL Calcium 9.6 (8.4-10.2) mg/dL Total Bilirubin 0.9 (0.2-1.3) mg/dL AST 91 H (14-36) U/L ALT 116 H (9-52) U/L Alkaline Phosphatase 97 (38-126) U/L Total Protein 6.9 (6.3-8.2) g/dL Albumin 4.2 (3.5-5.0) g/dL Lipase 127 (23-300) U/L Urine Color Urine Appearance (Clear) Urine pH (5.0-8.0) Ur Specific [place] (1.001-1.035) Urine Protein (Negative) Urine Glucose (UA) (Negative) Urine Ketones (Negative) Urine Blood (Negative) Urine Nitrite (Negative) Urine Bilirubin (Negative) Urine Urobilinogen (<2.0) mg/dL Ur Leukocyte Esterase (Negative) Urine HCG, Qual Not Detected (Not Detectd) 08/11/18 Range/Units 21:18 WBC (3.8-10.6) k/uL RBC (3.80-5.40) m/uL Hgb (11.4-16.0) gm/dL Hct (34.0-46.0) % MCV (80.0-100.0) fL MCH (25.0-35.0) pg MCHC (31.0-37.0) g/dL RDW (11.5-15.5) % Plt Count (150-450) k/uL Neutrophils % % Lymphocytes % % Monocytes % % Eosinophils % % Basophils % % Neutrophils # (1.3-7.7) k/uL Lymphocytes # (1.0-4.8) k/uL Monocytes # (0-1.0) k/uL Eosinophils # (0-0.7) k/uL Basophils # (0-0.2) k/uL Sodium (137-145) mmol/L Potassium (3.5-5.1) mmol/L Chloride (98-107) mmol/L Carbon Dioxide (22-30) mmol/L Anion Gap mmol/L BUN (7-17) mg/dL Creatinine (0.52-1.04) mg/dL Est GFR (CKD-EPI)AfAm (>60 ml/min/1.73 sqM) Est GFR (CKD-EPI)NonAf (>60 ml/min/1.73 sqM) Glucose (74-99) mg/dL Calcium (8.4-10.2) mg/dL Total Bilirubin (0.2-1.3) mg/dL AST (14-36) U/L ALT (9-52) U/L Alkaline Phosphatase (38-126) U/L Total Protein (6.3-8.2) g/dL Albumin (3.5-5.0) g/dL Lipase (23-300) U/L Urine Color Yellow Urine Appearance Clear (Clear) Urine pH 5.5 (5.0-8.0) Ur Specific [place] 1.028 (1.001-1.035) Urine Protein Trace H (Negative) Urine Glucose (UA) 4+ H (Negative) Urine Ketones Negative (Negative) Urine Blood Negative (Negative) Urine Nitrite Negative (Negative) Urine Bilirubin Negative (Negative) Urine Urobilinogen <2.0 (<2.0) mg/dL Ur Leukocyte Esterase Negative (Negative) Urine HCG, Qual (Not Detectd) Disposition Clinical Impression: Abdominal pain Disposition: HOME SELF-CARE Condition: Good Instructions (If sedation given, give patient instructions): Abdominal Pain (ED) Additional Instructions: Please use medication as discussed. Please follow-up with family doctor in the next 2 days for diabetic management. Please return to emergency room if the symptoms increase or worsen or for any other concerns. Is patient prescribed a controlled substance at d/c from ED?: No Referrals: Victoriano Causey MD [Primary Care Provider] - 1-2 days Time of Disposition: 23:38
[2018-08-11 23:51] VITALS: BP 100/71; PULSE 84; RESP 19; TEMP 98.3
== END 2018-08-11 23:50 | disposition home or self-care (01) ==
LOC: EC 20:42
DX: R10.31 Right lower quadrant pain (principal); R11.10 Vomiting, unspecified; R30.0 Dysuria; E11.9 Type 2 diabetes mellitus without complications; E78.5 Hyperlipidemia, unspecified; F90.9 Attention-deficit hyperactivity disorder, unspecified type; F32.9 Major depressive disorder, single episode, unspecified; Z79.84 Long term (current) use of oral hypoglycemic drugs; Z79.899 Other long term (current) drug therapy; Z88.0 Allergy status to penicillin; Z88.2 Allergy status to sulfonamides
CPT/HCPCS: 36415; 80053; 83690; 85025; 81003; 81025; 74177; 99284; Q9967

== ENCOUNTER 2018-10-12 21:19 | Emergency (ER) | payer OTHER ==
--- NOTE | 2018-10-12 22:59 | ED ---
Extremity Problem HPI - General Chief complaint: Extremity Problem,Nontraumatic Stated complaint: Shoulder injury Time Seen by Provider: 10/12/18 21:59 Source: patient Mode of arrival: ambulatory Limitations: no limitations - History of Present Illness Initial comments: 38-year-old female just past medical history presenting today for chief complaint of left shoulder pain. Patient states she is [id number]. Patient participated in a softball league. Patient states every time she throws or uses her left shoulder there is pain. 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 Patient states this been ongoing for the past week. Patient denies a fever chills night sweats redness or swelling of the shoulder. Patient denies any direct injury or trauma to the left shoulder. Patient states at times a sharp pain radiates from the anterior shoulder down her fingertips. Patient denies any pain at the elbow the wrist. Patient has a chest pain short of breath and dizziness or lower extremity swelling. Remaining review of systems negative upon arrival patient appears well no signs of acute distress. Patient is wearing [employer] jersey. - Related Data Home Medications Medication Instructions Recorded Confirmed Atorvastatin [Lipitor] 40 mg PO QAM 09/12/15 08/11/18 Cefdinir [Omnicef] 300 mg PO Q12HR 08/11/18 08/11/18 Lisdexamfetamine Dimesylate 60 mg PO QAM 08/11/18 08/11/18 [Vyvanse] QUEtiapine [SEROquel] 100 mg PO HS 08/11/18 08/11/18 buPROPion XL [Wellbutrin Xl] 150 mg PO DAILY 08/11/18 08/11/18 glipiZIDE [Glucotrol] 10 mg PO AC-BRKFST 08/11/18 08/11/18 metFORMIN HCL [Glucophage] 500 mg PO TID 08/11/18 08/11/18 Allergies Allergy/AdvReac Type Severity Reaction Status Date / Time Penicillins Allergy Unknown Verified 08/11/18 21:12 Sulfa (Sulfonamide Allergy Unknown Verified 08/11/18 21:12 Antibiotics) Review of Systems ROS Statement: Those systems with pertinent positive or pertinent negative responses have been documented in the HPI. ROS Other: All systems not noted in ROS Statement are negative. Past Medical History Past Medical History: Asthma, Diabetes Mellitus, Hyperlipidemia Additional Past Medical History / Comment(s): pre diabetic per pt History of Any Multi-Drug Resistant Organisms: None Reported Past Surgical History: Section, Cholecystectomy, Ear Surgery, Hys terectomy, Tubal Ligation Additional Past Surgical History / Comment(s): BILATERAL EAR TUBES; RECONSTRUCTION OF EAR DRUM OF RIGHT EAR. TUBAL WITH ESSURE. Past Anesthesia/Blood Transfusion Reactions: No Reported Reaction Past Psychological History: ADD/ADHD, Depression Smoking Status: Never smoker Past Alcohol Use History: None Reported Past Drug Use History: None Reported - Past Family History Mother Family Medical History: Coronary Artery Disease (CAD), CVA/TIA, Diabetes Mellitus General Exam - General Exam Comments Initial Comments: General: The patient is awake and alert, in no distress, and does not appear acutely ill. Eye: Pupils are equal, round and reactive to light, extra-ocular movements are intact. No nystagmus. There is normal conjunctiva bilaterally. No signs of icterus. Ears, nose, mouth and throat: There are moist mucous membranes and no oral lesions. Cardiovascular: There is a regular rate and rhythm. No murmur, rub or gallop is appreciated. Respiratory: Lungs are clear to auscultation, respirations are non-labored, breath sounds are equal. No wheezes, stridor, rales, or rhonchi. Musculoskeletal: Patient is tender to patient over the left anterior shoulder. Patient is very tender with for flexion and extension of the left shoulder joint. Positive Neer testing Normal ROM, no tenderness at the elbows and wrists bilaterally. Patient is able to make the okay fingers crossed thumbs-up up extend at the wrist and oppose the thumb and small finger. No evidence of radial ulnar or median nerve injury. Strength 5/5 at the shoulders elbows and wrists bilaterally. Sensation intact both proximal distal to injury site equal when compared to the unaffected right upper extremity. Radial pulses equal bilaterally 2+. Neurological: A&O x 3. CN II-XII intact, There are no obvious motor or sensory deficits. Coordination appears grossly intact. Speech is normal. Skin: Skin is warm and dry and no rashes or lesions are noted. Psychiatric: Cooperative, appropriate mood & affect, normal judgment. Limitations: no limitations Course Vital Signs 05/30/19 05/30/19 21:41 23:52 Temperature 98.0 F 98.5 F Pulse Rate 90 66 Respiratory 20 18 Rate Blood Pressure 113/84 123/64 O2 Sat by Pulse 97 97 Oximetry Medical Decision Making - Medical Decision Making Well-appearing 38-year-old feel presents for left shoulder pain. Patient has re producible anterior shoulder pain. Patient neurovascularly intact. Ulnar median and radial nerve. Intact. Patient has positive Neer testing. No warmth redness of joint. denies chest pain. Obviously reproducible. XR (-) for acute osseous process. At this time feel this overuse injury. Patient is placed in sling for comfort. Patient to follow up primary care provider in 2 days. Recommended orthopedic surgery follow-up if symptoms persist. Patient is to rest left shoulder. Patient is agreeable care plan at discharge. Return parameters were discussed with patient prior to discharge. Discussed case via telephone with attending provider Dr. Damon prior to discharge. Disposition Clinical Impression: Left shoulder pain, Overuse injury Disposition: HOME SELF-CARE Condition: Good Instructions (If sedation given, give patient instructions): Shoulder Pain (ED) Additional Instructions: Please use medication as discussed. Please follow-up with family doctor in the next 2 days. Please return to emergency room if the symptoms increase or worsen or for any other concerns. Is patient prescribed a controlled substance at d/c from ED?: No Referrals: Chris Valenzulea MD [Primary Care Provider] - 1-2 days Time of Disposition: 23:42
--- NOTE | 2018-10-12 23:38 | XR ---
EXAM: XR Left Shoulder Complete, 2 or More Views CLINICAL HISTORY: ITS.REASON XR Reason: Pain TECHNIQUE: Two or more views of the left shoulder. COMPARISON: No relevant prior studies available. FINDINGS: Bones/joints: No acute fracture or dislocation. Soft tissues: No radiopaque foreign body. IMPRESSION: No acute fracture or dislocation.
[2018-10-12 23:53] VITALS: BP 123/64; PULSE 66; RESP 18; TEMP 98.5
== END 2018-10-12 23:52 | disposition home or self-care (01) ==
LOC: EC 21:19
DX: S49.92XA Unspecified injury of left shoulder and upper arm, initial encounter (principal); E11.9 Type 2 diabetes mellitus without complications; E78.5 Hyperlipidemia, unspecified; F32.9 Major depressive disorder, single episode, unspecified; F90.9 Attention-deficit hyperactivity disorder, unspecified type; Z79.84 Long term (current) use of oral hypoglycemic drugs; Z79.899 Other long term (current) drug therapy; Z88.0 Allergy status to penicillin; Z88.2 Allergy status to sulfonamides; X58.XXXA Exposure to other specified factors, initial encounter; Y93.64 Activity, baseball
CPT/HCPCS: 99283

== ENCOUNTER → 2019-01-29 | Outpatient (CLI) | payer OTHER ==
[2019-01-29 15:41] VITALS: BP 115/83; PULSE 92; RESP 16; TEMP 98.1; BMI 41.3
--- NOTE | 2019-01-29 16:44 | P.HPBAR ---
Bariatric H&P - History & Physicial H&P Date: 01/29/19 History & Physicial: Visit/CC: Initial Visit Patient initial contact: Initial weight: 119.748 kg Initial weight in pounds: 264.00 Height: 5 ft 7 in Initial BMI: 41.3 Last weight: Current weight: 119.748 kg Current weight in pounds: 264.00 Current BMI: 41.3 [place] body weight (based on NIH guidelines): 61.235 kg Excess body weight loss: 0.0% The patient is a 38 year-old F who presents for Bariatric Assessment. Patient presents today for new patient consultation. She is morbidly obese. Her BMI is 41. She is requesting sleeve gastrectomy. She seems have an excellent understanding of the sleeve. Past Medical History Past Medical History: Asthma, Diabetes Mellitus, Hyperlipidemia Additional Past Medical History / Comment(s): pre diabetic per pt History of Any Multi-Drug Resistant Organisms: None Reported Past Surgical History: Section, Cholecystectomy, Ear Surgery, Hysterectomy, Tubal Ligation Additional Past Surgical History / Comment(s): BILATERAL EAR TUBES; RECONSTRUCTION OF EAR DRUM OF RIGHT EAR. TUBAL WITH ESSURE. Past Anesthesia/Blood Transfusion Reactions: No Reported Reaction Smoking Status: Never smoker - Past Family History Mother Family Medical History: Coronary Artery Disease (CAD), CVA/TIA, Diabetes Mellitus Surgical - Exam Vital Signs Temp Pulse Resp BP 98.1 F 92 16 115/83 01/29/19 15:39 01/29/19 15:39 01/29/19 15:39 01/29/19 15:39 - General well developed, well nourished, no distress - Eyes PERRL - ENT normal pinna - Neck no masses - Respiratory normal expansion - Cardiovascular Rhythm: regular - Abdomen Abdomen: soft, non tender Bariatric Assessment & Plan Plan: Morbid obesity with BMI of 41. Patiently scheduled for EGD. She'll follow-up in the clinic after this is been performed. Bariatric Checklist Checklist: Plan: Checklist: EGD: 1. Hiatal hernia: 2. H. Pylori: HgbA1c: Vitamin D: Smoking: Never smoker Primary care physician referral: [email or web address] Psychiatry clearance: Cardiology clearance: Sleep study: Diet journal: VTE risk score: VTE risk level: Rehab needs at discharge:
[2019-01-30 04:05] LABS: Hemoglobin A1C 6.8 % (4.0-6.0)
== END | disposition home or self-care (01) ==
LOC: BARWHC3 15:28
PROVIDERS: ATTEND Surgery
DX: E66.01 Morbid (severe) obesity due to excess calories (principal); Z68.41 Body mass index [BMI] 40.0-44.9, adult; Z90.49 Acquired absence of other specified parts of digestive tract; Z90.710 Acquired absence of both cervix and uterus; Z98.51 Tubal ligation status
CPT/HCPCS: 83036; 93005; 36415; G0463; 99211

== ENCOUNTER 2019-02-03 13:14 | Emergency (ER) | payer OTHER ==
[2019-02-03 13:19] VITALS: BP 124/88; PULSE 88; RESP 20; TEMP 97.8
--- NOTE | 2019-02-03 13:43 | ED ---
Abdominal Pain HPI - General Chief Complaint: Abdominal Pain Stated Complaint: Hematuria Time Seen by Provider: 02/03/19 13:24 Source: patient, RN notes reviewed, old records reviewed Mode of arrival: ambulatory Limitations: no limitations - History of Present Illness Initial Comments: Patient is a 38-year-old female presents emergency room today with chief complaint of dysuria, hematuria noted just today. Patient reports that she wiped she noticed a small clot after she urinated. Patient reports she does not have a uterus. She denies any vaginal bleeding or discharge. Denies any changes in bowel habits. She reports that she noticed the bleeding after urinating and not having a bowel movement. Patient reports that she's had no recent fevers or chills and denies any significant back pain. - Related Data Home Medications Medication Instructions Recorded Confirmed Atorvastatin [Lipitor] 40 mg PO QAM 09/12/15 01/31/19 Lisdexamfetamine Dimesylate 60 mg PO QAM 08/11/18 01/31/19 [Vyvanse] QUEtiapine [SEROquel] 100 mg PO HS 08/11/18 01/31/19 glipiZIDE [Glucotrol] 10 mg PO AC-BRKFST 08/11/18 01/31/19 metFORMIN HCL [Glucophage] 1,000 mg PO BID 08/11/18 01/31/19 buPROPion XL [Wellbutrin XL] 150 mg PO DAILY 01/29/19 01/31/19 Previous Rx's Medication Instructions Recorded Nitrofurantoin Monohyd/M-Cryst 100 mg PO Q12HR #14 cap 02/03/19 [Macrobid] Phenazopyridine [Pyridium] 100 mg PO TID #9 tablet 02/03/19 Allergies Allergy/AdvReac Type Severity Reaction Status Date / Time Penicillins Allergy Unknown Verified 02/03/19 13:19 Sulfa (Sulfonamide Allergy Unknown Verified 02/03/19 13:19 Antibiotics) Review of Systems ROS Statement: Those systems with pertinent positive or pertinent negative responses have been documented in the HPI. ROS Other: All systems not noted in ROS Statement are negative. Past Medical History Past Medical History: Asthma, Diabetes Mellitus, Hyperlipidemia Additional Past Medical History / Comment(s): pre diabetic per pt History of Any Multi-Drug Resistant Organisms: None Reported Past Surgical History: Section, Cholecystectomy, Ear Surgery, Hysterectomy, Tubal Ligation Additional Past Surgical History / Comment(s): BILATERAL EAR TUBES; RECONSTRUCTION OF EAR DRUM OF RIGHT EAR. TUBAL WITH ESSURE. Past Anesthesia/Blood Transfusion Reactions: No Reported Reaction Past Psychological History: ADD/ADHD, Depression Smoking Status: Never smoker Past Alcohol Use History: None Reported Past Drug Use History: None Reported - Past Family History Mother Family Medical History: Coronary Artery Disease (CAD), CVA/TIA, Diabetes Mellitus General Exam - General Exam Comments Initial Comments: 38-year-old female. Alert and oriented. No significant distress. Limitations: no limitations General appearance: alert, in no apparent distress Head exam: Present: atraumatic, normocephalic, normal inspection Eye exam: Present: normal appearance, PERRL, EOMI. Absent: scleral icterus, conjunctival injection, periorbital swelling ENT exam: Present: normal exam, mucous membranes moist Neck exam: Present: normal inspection. Absent: tenderness, meningismus, lymphadenopathy Respiratory exam: Present: normal lung sounds bilaterally. Absent: respiratory distress, wheezes, rales, rhonchi, stridor Cardiovascular Exam: Present: regular rate, normal rhythm, normal heart sounds. Absent: systolic murmur, diastolic murmur, rubs, gallop, clicks GI/Abdominal exam: Present: soft, tenderness (Suprapubic tenderness), normal bowel sounds. Absent: distended, guarding, rebound, rigid Back exam: Present: normal inspection Neurological exam: Present: alert, oriented X3, CN II-XII intact Course Vital Signs 02/03/19 13:16 Temperature 97.8 F Pulse Rate 88 Respiratory 20 Rate Blood Pressure 124/88 O2 Sat by Pulse 97 Oximetry Medical Decision Making - Medical Decision Making This is a 38-year-old female, she presents emergency department today for evaluation for suprapubic pain, dysuria mild hematuria starting today. She said history of urinary tract infections in the past but no recent antibiotics. Denies any flank pain or fevers. No changes in stools. Patient reports she hematuria just today. Patient last had UTI back in 2018. That time Patient is placed on Macrobid. Urinalysis is positive for infection today. We'll start the Patient on Pyridium and Macrobid again. I discussed that if Patient were many other concerning signs and symptoms including fever or nausea vomiting and inability to hold down her medication she should return for reevaluation. Patient is agreeable to treatment plan will comply. Return parameters were discussed. - Lab Data Lab Results 02/03/19 02/03/19 Range/Units 13:30 13:30 Urine Color Yellow Urine Appearance Cloudy H (Clear) Urine pH 6.5 (5.0-8.0) Ur Specific [place] 1.017 (1.001-1.035) Urine Protein Trace H (Negative) Urine Glucose (UA) Negative (Negative) Urine Ketones Negative (Negative) Urine Blood Small H (Negative) Urine Nitrite Negative (Negative) Urine Bilirubin Negative (Negative) Urine Urobilinogen <2.0 (<2.0) mg/dL Ur Leukocyte Esterase Large H (Negative) Urine RBC 21 H (0-5) /hpf Urine WBC 99 H (0-5) /hpf Ur Squamous Epith Cells 4 (0-4) /hpf Amorphous Sediment Rare H (None) /hpf Urine Bacteria Moderate H (None) /hpf Urine Mucus Rare H (None) /hpf Urine HCG, Qual Not Detected (Not Detectd) Disposition Clinical Impression: UTI (urinary tract infection) Disposition: HOME SELF-CARE Condition: Good Instructions (If sedation given, give patient instructions): Urinary Tract Infection in Women (ED) Additional Instructions: Please use medication as discussed. Please follow up with family doctor if symptoms have not improved over the next two days. Please return to the emergency room if your symptoms increase or worsen or for any other concerns. Prescriptions: Nitrofurantoin Monohyd/M-Cryst [Macrobid] 100 mg PO Q12HR #14 cap Phenazopyridine [Pyridium] 100 mg PO TID #9 tablet Is patient prescribed a controlled substance at d/c from ED?: No Referrals: Chris Valenzuela MD [Primary Care Provider] - 1-2 days Time of Disposition: 13:54
[2019-02-03 13:49] LABS: Amorphous Sediment,Urine Rare /hpf; Appearance,Urine Cloudy (Clear); Bacteria,Urine Moderate /hpf; Bilirubin,Urine Negative (Negative); Blood,Urine Small (Negative); Color,Urine Yellow; Glucose,Urine (UA) Negative (Negative); Ketones,Urine Negative (Negative); Leukocyte Esterase,Urine Large (Negative); Mucus,Urine Rare /hpf; Nitrite,Urine Negative (Negative); PH, Urine 6.5 (5.0-8.0); Protein,Urine Trace (Negative); RBC,Urine 21 /hpf (0-5); Specific Gravity,Urine 1.017 (1.001-1.035); Squamous Epithelial Cell,Urine 4 /hpf (0-4); Urobilinogen,Urine <2.0 mg/dL (<2.0)
[2019-02-03] MEDS ORDERED: PHENAZOPYRIDINE 100 MG TAB PO STA (13:53)
[2019-02-03] MEDS ORDERED: NITROFURANTOIN MONOHYD/M-CRYST 100 MG CAP PO STA (13:53)
== END 2019-02-03 14:08 | disposition home or self-care (01) ==
LOC: EC 13:14
DX: N39.0 Urinary tract infection, site not specified (principal); E78.5 Hyperlipidemia, unspecified; F90.9 Attention-deficit hyperactivity disorder, unspecified type; F32.9 Major depressive disorder, single episode, unspecified; Z88.0 Allergy status to penicillin; Z88.2 Allergy status to sulfonamides; Z79.84 Long term (current) use of oral hypoglycemic drugs; Z79.899 Other long term (current) drug therapy; Z90.710 Acquired absence of both cervix and uterus; Z90.49 Acquired absence of other specified parts of digestive tract
CPT/HCPCS: 81001; 81025; 87077; 87086; 87186; 99284

== ENCOUNTER 2019-02-19 07:22 | Day surgery (SDC) | payer OTHER ==
[2019-02-15 14:43] VITALS: BMI 40.8
[~2019-02-19 07:22] MED LIST: LACTATED RINGERS 1,000 ML IV SCH; LIDOCAINE 1% 20 ML VIAL (10MG/ML) FOR IV START INTRADERMA PRN
[2019-02-19 07:49] VITALS: RESP 16; TEMP 96.7
[2019-02-19 07:57] LABS: Glucose,Whole Blood 130 mg/dL (75-99)
[2019-02-19] MEDS ORDERED: LIDOCAINE 1% INJ 10MG/ML (20 ML MDV) ONE (08:38)
[2019-02-19] MEDS ORDERED: PROPOFOL 10 MG/ML 20 ML VIAL IV ONE (08:38)
--- NOTE | 2019-02-19 08:52 | P.GSHP ---
History of Present Illness H&P Date: 02/19/19 Chief Complaint: Morbid obesity, GERD This is a 38-year-old female who presents today for EGD. Patient's BMI is 41. She is undergoing workup for sleeve gastrectomy. Past Medical History Past Medical History: Asthma, Diabetes Mellitus, GERD/Reflux, Hyperlipidemia Additional Past Medical History / Comment(s): RECENT UTI, RX FINISHED. History of Any Multi-Drug Resistant Organisms: None Reported Past Surgical History: Section, Cholecystectomy, Ear Surgery, Hysterectomy, Tubal Ligation Additional Past Surgical History / Comment(s): BMT; RECONSTRUCTION OF EAR DRUM OF RIGHT EAR. TUBAL WITH ESSURE. Past Anesthesia/Blood Transfusion Reactions: No Reported Reaction Smoking Status: Former smoker - Past Family History Mother Family Medical History: Coronary Artery Disease (CAD), CVA/TIA, Diabetes Mellitus Additional Family Medical History / Comment(s): HEART DEFECT Medications and Allergies Home Medications Medication Instructions Recorded Confirmed Type Atorvastatin [Lipitor] 40 mg PO QAM 09/12/15 02/19/19 History Lisdexamfetamine Dimesylate 60 mg PO QAM 08/11/18 02/19/19 History [Vyvanse] glipiZIDE [Glucotrol] 10 mg PO AC-BRKFST 08/11/18 02/19/19 History metFORMIN HCL [Glucophage] 1,000 mg PO BID 08/11/18 02/19/19 History buPROPion XL [Wellbutrin XL] 150 mg PO DAILY 01/29/19 02/19/19 History Beclomethasone Dip 80 Mcg/Puff 1 puff INHALATION DIRECTED PRN 02/15/19 02/19/19 History [Qvar 80 mcg] Omeprazole [PriLOSEC] 20 mg PO AC-BRKFST 02/15/19 02/19/19 History Allergies Allergy/AdvReac Type Severity Reaction Status Date / Time Penicillins Allergy Unknown Verified 02/15/19 14:24 Sulfa (Sulfonamide Allergy Unknown Verified 02/15/19 14:24 Antibiotics) Surgical - Exam Vital Signs Temp Pulse Resp BP Pulse Ox 96.7 F L 73 16 117/71 97 02/19/19 07:46 02/19/19 07:46 02/19/19 07:46 02/19/19 07:46 02/19/19 07:46 - General well developed, well nourished, no distress - Eyes PERRL - ENT normal pinna - Neck no masses - Respiratory normal expansion - Cardiovascular Rhythm: regular - Abdomen Abdomen: soft, non tender Results - Labs Abnormal Lab Results - Last 24 Hours (Table) 02/19/19 Range/Units 07:52 POC Glucose (mg/dL) 130 H (75-99) mg/dL Assessment and Plan Assessment: Morbid obesity, BMI 41 GERD We'll perform EGD.
--- NOTE | 2019-02-19 08:57 | P.OP ---
Date of Procedure: 02/19/19 Preoperative Diagnosis: Morbid obesity GERD Postoperative Diagnosis: Antral gastritis Procedure(s) Performed: EGD Anesthesia: MAC Surgeon: Brando Madison Pathology: other (Antrum) Condition: stable Disposition: PACU Description of Procedure: The patient's placed on the endoscopy table in the lateral position. She received IV sedation. The gastro-placed oropharynx and passed in the esophagus into the stomach. Scope was placed through the pylorus. The first and second portion of the duodenum. Normal. Scope was then brought back the antrum this appeared mildly inflamed. A biopsies performed. Scope was unretroflexed and remainder of the stomach appeared normal. There is no significant hiatal hernia. The GE junction was at 40 cm. The distal esophagus appeared will. The proximal esophagus appeared normal. Scope withdrawn for patient.
[2019-02-19 09:20] VITALS: BP 125/75; PULSE 65
== END 2019-02-19 09:40 | disposition home or self-care (01) ==
LOC: ORWHC2ENDO 07:22
PROVIDERS: ATTEND Surgery
DX: K21.9 Gastro-esophageal reflux disease without esophagitis (principal); K29.50 Unspecified chronic gastritis without bleeding; E11.9 Type 2 diabetes mellitus without complications; E66.01 Morbid (severe) obesity due to excess calories; E78.5 Hyperlipidemia, unspecified; J45.909 Unspecified asthma, uncomplicated; Z79.84 Long term (current) use of oral hypoglycemic drugs; Z79.899 Other long term (current) drug therapy; Z82.49 Family history of ischemic heart disease and other diseases of the circulatory system; Z83.3 Family history of diabetes mellitus; Z87.891 Personal history of nicotine dependence; Z88.0 Allergy status to penicillin; Z88.2 Allergy status to sulfonamides; Z90.49 Acquired absence of other specified parts of digestive tract; Z98.51 Tubal ligation status; Z68.41 Body mass index [BMI] 40.0-44.9, adult; F32.9 Major depressive disorder, single episode, unspecified; F90.9 Attention-deficit hyperactivity disorder, unspecified type
CPT/HCPCS: 88305; 43239; J2001; J2704

== ENCOUNTER → 2019-02-26 | Outpatient (CLI) | payer OTHER ==
[2019-02-26 09:51] VITALS: BMI 40.7
--- NOTE | 2019-02-26 13:39 | P.HPBAR ---
Bariatric H&P - History & Physicial H&P Date: 02/26/19 History & Physicial: Visit/CC: Presurgical Diet Class 1 & 2 Patient initial contact: Initial weight: 119.748 kg Initial weight in pounds: 264.00 Height: 5 ft 7 in Initial BMI: 41.3 Last weight: Current weight: 118.07 kg Current weight in pounds: 260.30 Current BMI: 40.7 [place] body weight (based on NIH guidelines): 61.235 kg Excess body weight loss: 2.8% The patient is a 38 year-old F who presents for Bariatric Assessment. Patient presents today for presurgical consultation. Apparently she'll be scheduled for sleeve gastrectomy once her authorizations complete. The patient just finished her new patient diet class. She has an excellent understanding of the sleeve gastrectomy. Her BMI is 41. Past Medical History Past Medical History: Asthma, Diabetes Mellitus, GERD/Reflux, Hyperlipidemia Additional Past Medical History / Comment(s): RECENT UTI, RX FINISHED. History of Any Multi-Drug Resistant Organisms: None Reported Past Surgical History: Section, Cholecystectomy, Ear Surgery, Hysterectomy, Tubal Ligation Additional Past Surgical History / Comment(s): BMT; RECONSTRUCTION OF EAR DRUM OF RIGHT EAR. TUBAL WITH ESSURE. Past Anesthesia/Blood Transfusion Reactions: No Reported Reaction Smoking Status: Former smoker - Past Family History Mother Family Medical History: Coronary Artery Disease (CAD), CVA/TIA, Diabetes Mellitus Surgical - Exam - General well developed, well nourished, no distress - Eyes PERRL - ENT normal pinna - Neck no masses - Respiratory normal expansion - Cardiovascular Rhythm: regular - Abdomen Abdomen: soft, non tender Bariatric Assessment & Plan Plan: RBC, BMI 41. Patient will be scheduled for sleeve gastrectomy. He went over the risks and benefits of the surgery including possible gastric stapling disruption, bleeding and scarring and GERD symptoms. Bariatric Checklist Checklist: Plan: Checklist: EGD: 1. Hiatal hernia: 2. H. Pylori: HgbA1c: Vitamin D: Smoking: Former smoker Primary care physician referral: Chris Valenzuela Psychiatry clearance: Cardiology clearance: Sleep study: Diet journal: VTE risk score: VTE risk level: Rehab needs at discharge:
== END | disposition home or self-care (01) ==
LOC: BARWHC3 08:52
PROVIDERS: ATTEND Surgery
DX: E66.01 Morbid (severe) obesity due to excess calories (principal); Z68.41 Body mass index [BMI] 40.0-44.9, adult; Z87.891 Personal history of nicotine dependence; Z98.51 Tubal ligation status; Z90.49 Acquired absence of other specified parts of digestive tract; Z90.710 Acquired absence of both cervix and uterus
CPT/HCPCS: 97804; G0463; 99211

== ENCOUNTER → 2019-03-17 | Outpatient (CLI) | payer OTHER ==
[2019-03-17 11:20] LABS: Basophils # (A) 0.1 k/uL (0-0.2); Basophils % (A) 1 %; Eosinophils # (A) 0.1 k/uL (0-0.7); Eosinophils % (A) 1 %; HCT 45.4 % (34.0-46.0); Lymphocytes # (A) 3.2 k/uL (1.0-4.8); Lymphocytes % (A) 42 %; MCH 31.1 pg (25.0-35.0); MCV 94.2 fL (80.0-100.0); Mean Platelet Volume 6.1; Monocytes # (A) 0.3 k/uL (0-1.0); Monocytes % (A) 3 %; Neutrophils # (A) 3.8 k/uL (1.3-7.7); Neutrophils % (A) 50 %; Platelet Count 350 k/uL (150-450); RBC 4.82 m/uL (3.80-5.40); RDW 12.6 % (11.5-15.5); WBC 7.6 k/uL (3.8-10.6)
[2019-03-17 11:28] LABS: ALT 64 U/L (9-52); AST 40 U/L (14-36); African American GFR (CKD) >90 (>60 ml/min/1.73 sqM); Albumin 4.5 g/dL (3.5-5.0); Alkaline Phosphatase 94 U/L (38-126); Anion Gap 11 mmol/L; Blood Urea Nitrogen 13 mg/dL (7-17); Calcium 9.8 mg/dL (8.4-10.2); Carbon Dioxide 25 mmol/L (22-30); Chloride 105 mmol/L (98-107); Glucose 131 mg/dL (74-99); Potassium 4.4 mmol/L (3.5-5.1); Sodium 141 mmol/L (137-145); Total Bilirubin 1.1 mg/dL (0.2-1.3); Total Protein 7.7 g/dL (6.3-8.2)
== END | disposition home or self-care (01) ==
LOC: LABPAT 09:44
PROVIDERS: ATTEND Surgery
DX: Z01.812 Encounter for preprocedural laboratory examination (principal)
CPT/HCPCS: 36415; 80053; 85025

== ENCOUNTER 2019-03-28 08:50 | Inpatient (IN) | payer OTHER ==
[2019-03-26 13:03] VITALS: BMI 39.1
[~2019-03-28 08:50] MED LIST changes: +DEXAMETHASONE SOD PHOSPHATE 10 MG/ML 1 ML VIAL IV ONE; +ENOXAPARIN 40 MG/0.4 ML SYRINGE SQ ONE; +HYDROmorphone 0.5 MG/0.5 ML SYRINGE IVP PRN; -LACTATED RINGERS 1,000 ML IV SCH; +MIDAZOLAM 2 MG/2 ML VIAL IV PRN; +ONDANSETRON 4 MG/2 ML VIAL IVP ONE; +SCOPOLAMINE 1.5MG/72HR PATCH TRANSDERM ONE
[2019-03-28 12:08] LABS: Glucose,Whole Blood 116 mg/dL (75-99)
[2019-03-28] MEDS: LACTATED RINGERS 1,000 ML IV SCH (12:10)
--- NOTE | 2019-03-28 12:15 | P.GSHP ---
History of Present Illness H&P Date: 03/28/19 Chief Complaint: Morbid obesity This is a 39-year-old female who presents today for laparoscopic sleeve gastrectomy. Patient history of morbid obesity with severe comorbidities. Her BMI is 39 Past Medical History Past Medical History: Asthma, Diabetes Mellitus, GERD/Reflux, Hyperlipidemia Additional Past Medical History / Comment(s): "Sport induced asthma." Migraines. History of Any Multi-Drug Resistant Organisms: None Reported Past Surgical History: Section, Cholecystectomy, Ear Surgery, Hysterectomy, Tubal Ligation Additional Past Surgical History / Comment(s): RECONSTRUCTION OF RIGHT EAR DRUM. Past Anesthesia/Blood Transfusion Reactions: Motion Sickness Past Psychological History: ADD/ADHD, Depression Additional Psychological History / Comment(s): ADHD. Smoking Status: Former smoker Past Alcohol Use History: None Reported Additional Past Alcohol Use History / Comment(s): Quit smoking 16 yrs ago, smoked socially as a teenager. Past Drug Use History: None Reported - Past Family History Mother Family Medical History: Coronary Artery Disease (CAD), CVA/TIA, Diabetes Mellitus, Deep Vein Thrombosis (DVT) Medications and Allergies Home Medications Medication Instructions Recorded Confirmed Type Atorvastatin [Lipitor] 40 mg PO QAM 09/12/15 03/28/19 History Lisdexamfetamine Dimesylate 60 mg PO QAM 08/11/18 03/28/19 History [Vyvanse] glipiZIDE [Glucotrol] 10 mg PO AC-BRKFST 08/11/18 03/28/19 History metFORMIN HCL [Glucophage] 1,000 mg PO QAM 08/11/18 03/28/19 History buPROPion XL [Wellbutrin XL] 150 mg PO QAM 01/29/19 03/28/19 History Beclomethasone Dip 80 Mcg/Puff 1 puff INHALATION DIRECTED PRN 02/15/19 03/28/19 History [Qvar 80 mcg] Omeprazole [PriLOSEC] 20 mg PO QAM 02/15/19 03/28/19 History traMADol HCL 100 mg PO DIRECTED PRN 03/26/19 03/28/19 History Allergies Allergy/AdvReac Type Severity Reaction Status Date / Time Penicillins Allergy Unknown Verified 03/28/19 11:39 Sulfa (Sulfonamide Allergy Unknown Verified 03/28/19 11:39 Antibiotics) Surgical - Exam Vital Signs Temp Pulse Resp BP Pulse Ox 97.8 F 80 16 118/77 96 03/28/19 11:38 03/28/19 11:38 03/28/19 11:38 03/28/19 11:38 03/28/19 11:38 - General well developed, well nourished, no distress - Eyes PERRL - ENT normal pinna - Neck no masses - Respiratory normal expansion - Cardiovascular Rhythm: regular - Abdomen Abdomen: soft, non tender Results - Labs Abnormal Lab Results - Last 24 Hours (Table) 03/28/19 Range/Units 12:07 POC Glucose (mg/dL) 116 H (75-99) mg/dL Assessment and Plan Assessment: Morbid obesity with severe coronary disease. Patient will undergo laparoscopic sleeve gastrectomy. Patient reversed surgery including conversion to the open procedure and injury to the stomach liver spleen she also aware the risk of gastric staple line disruption, bleeding
[2019-03-28] MEDS ORDERED: fentaNYL (PF) 50 MCG/ML 2 ML AMP IVP ONE (12:48)
[2019-03-28] MEDS ORDERED: DEXAMETHASONE SOD PHOSPHATE 4 MG/ML 1 ML VIAL ONE (13:49)
[2019-03-28] MEDS ORDERED: ePHEDrine SULFATE/0.9% NACL/PF 50 MG/5 ML SYRINGE IV ONE (13:49)
[2019-03-28] MEDS ORDERED: KETOROLAC 30 MG/ML 1 ML VIAL ONE (13:49)
[2019-03-28] MEDS ORDERED: NEOSTIGMINE 1 MG/ML 10 ML VIAL ONE (13:49)
[2019-03-28] MEDS ORDERED: GLYCOPYRROLATE 0.2 MG/ML 2 ML VIAL ONE (13:49)
[2019-03-28] MEDS ORDERED: ROPIVACAINE 5 MG/ML 30 ML VIAL ONE (13:49)
[2019-03-28] MEDS ORDERED: LIDOCAINE 1% INJ 10MG/ML (20 ML MDV) ONE (13:49)
[2019-03-28] MEDS ORDERED: fentaNYL (PF) 50 MCG/ML 2 ML AMP ONE (13:49)
[2019-03-28] MEDS ORDERED: PROPOFOL 10 MG/ML 20 ML VIAL IV ONE (13:49)
[2019-03-28] MEDS ORDERED: ROCURONIUM BROMIDE 10 MG/ML 10 ML VIAL IV ONE (13:49)
[2019-03-28] MEDS ORDERED: MIDAZOLAM 2 MG/2 ML VIAL ONE (13:49)
--- NOTE | 2019-03-28 13:56 | P.ANPRN ---
Procedure Note - Anesthesia - Nerve Block Performed Bilateral Transversus Abdominis Single Time Out Performed: Yes Date of Procedure: 03/28/19 Procedure Start Time: 12:48 Procedure Stop Time: 12:58 Location of Patient Procedure: PreOp Indication: Acute Post-Operative Pain, Requested by Surgeon Sedation Type: Sedate with meaningful contact maintained Preparation: Sterile Prep Position: Supine Catheter: None Needle Types: Pajunk Needle Gauge: 21 Ultrasound used to visualize needle placement: Yes Ultrasound used to observe medication spread: Yes Injectate: 0.5% Ropivacaine (see comment for volume) ((0.5% ropivacaine 20ml + decadron 4mg) per side) Blood Aspirated: No Pain Paresthesia on Injection Noted: No Resistance on Injection: Normal Image Stored and Saved: Yes Events: Uneventful and Well Tolerated
[2019-03-28] MEDS ORDERED: LIDOCAINE 1%-EPI 1:100,000 20 ML VIAL SQ ONE (14:19)
[2019-03-28] MEDS ORDERED: LACTATED RINGERS 1,000 ML IV ONE (14:31)
--- NOTE | 2019-03-28 15:11 | P.OP ---
Date of Procedure: 03/28/19 Preoperative Diagnosis: Morbid obesity, BMI 39 Postoperative Diagnosis: Morbid obesity Procedure(s) Performed: Laparoscopic sleeve gastrectomy Repair of hiatal hernia Anesthesia: BUZZ Surgeon: Brando Madison Estimated Blood Loss (ml): 10 Pathology: none sent Condition: stable Disposition: PACU Description of Procedure: TThe patient was placed on the operating room table in the supine position. She received general anesthesia and then was placed in dorsal lithotomy position. Her abdomen was prepped and draped in sterile fashion. The skin incision sites were anesthetized 1% local Xylocaine. And then the skin was incised with an 11 blade in the left lateral position. Using a blade less trocar under direct visualization the peritoneal cavity was entered. The abdomen was insufflated and then a 5 mm laparoscope was placed into the peritoneal cavity. A 5 mm trocar was placed in the right epigastric, and right lateral position. A 15 mm trocar was placed in the supra-umbilical position and another 5 mm trocar was placed in the left lateral position. The left lateral lobe of the liver was retracted. The stomach was visualized. The greater curvature of the stomach was then dissected using the Harmonic scissors. The dissection occurred appro ximately 5 cm from the pylorus to the level of the left wild. There was a hiatal hernia seen. The hiatus was dissected with the Harmonic scissors. The hiatal hernia was closed with a 2-0 Ethibond suture placed in the retrocrural space. At this point a 40-Slovak bougie dilator was placed the oropharynx and passed into the esophagus and into the stomach by the LACQUER COATER. The sleeve gastrectomy was performed by using the powered echelon stapler with a seam guard buttress material. Sequential firings of the stapler were performed. The gastric remnant was then brought out through the 15 mm trocar site. The dilator was withdrawn. And a orogastric tube was replaced into the stomach. The stomach was insufflated with 200 mL of methylene blue normal saline. There was no evidence of extravasation. The abdomen was irrigated there is no bleeding seen. The Mani-Marsha device was used to close the 15 mm trocar with 0 Vicryl. Skin was closed with interrupted 3-0 Monocryl sutures once the trochars withdrawn. Dermabond dressing was applied. Patient was sent to recovery in stable condition.
[2019-03-28] MEDS ORDERED: HYDROcodone/APAP 15 ML SOLUTION PO PRN (15:12)
[2019-03-28] MEDS ORDERED: HYOSCYAMINE ORAL DROPS 1.875 MG/15 ML BOTTLE PO PRN (15:12)
[2019-03-28] MEDS ORDERED: SIMETHICONE 40 MG/0.6 ML DROPS 2,000 MG/30 ML BOTTLE PO PRN (15:12)
[2019-03-28] MEDS ORDERED: diphenhydrAMINE 50 MG/ML 1 ML VIAL IVP PRN (15:12)
[2019-03-28] MEDS ORDERED: HYDROmorphone 1 MG/ML 1 ML SYRINGE IVP PRN (15:12)
[2019-03-28] MEDS ORDERED: NALOXONE 0.4 MG/ML 1 ML VIAL IV PRN (15:12)
[2019-03-28 15:33] LABS: Glucose,Whole Blood 259 mg/dL (75-99)
[2019-03-28] MEDS: ALBUTEROL NEBULIZED 2.5 MG/3 ML INHALATION SCH ×2 (15:54→19:36)
[2019-03-28] MEDS ORDERED: ACETAMINOPHEN IV (For NPO) 1,000 MG in EMPTY BAG 1 BAG IVPB ONE (16:00)
[2019-03-28] MEDS ORDERED: INSULIN ASPART (NovoLOG) 100 UNIT/ML VIAL SQ ONE (16:44)
[2019-03-28 17:20] LABS: Glucose,Whole Blood 223 mg/dL (75-99)
[2019-03-28] MEDS: KETOROLAC 30 MG/ML 1 ML VIAL IVP SCH (17:21)
[2019-03-28] MEDS: ONDANSETRON 4 MG/2 ML VIAL IVP PRN (20:34)
[2019-03-28] MEDS: 0.9% NACL WITH KCL 20 MEQ/L 1,000 ML IV SCH (20:34)
[2019-03-28] MEDS: INSULIN ASPART (NovoLOG) 100 UNIT/ML VIAL SQ SCH (20:34)
[2019-03-28 20:37] LABS: Glucose,Whole Blood 176 mg/dL (75-99)
[2019-03-28] MEDS: CLINDAMYCIN 900 MG in DEXTROSE 5% IN WATER 50 ML IVPB SCH ×2 (22:25)
[2019-03-29] MEDS: 0.9% NACL WITH KCL 20 MEQ/L 1,000 ML IV SCH ×4 (00:09→19:01)
[2019-03-29] MEDS: KETOROLAC 30 MG/ML 1 ML VIAL IVP SCH ×5 (00:09→23:20)
[2019-03-29] MEDS: LACTATED RINGERS 1,000 ML IV SCH (03:09)
[2019-03-29] MEDS: CLINDAMYCIN 900 MG in DEXTROSE 5% IN WATER 50 ML IVPB SCH ×2 (05:05)
[2019-03-29] MEDS: ENOXAPARIN 40 MG/0.4 ML SYRINGE SQ SCH ×2 (05:05→18:23)
[2019-03-29 07:25] LABS: Glucose,Whole Blood 132 mg/dL (75-99)
[2019-03-29] MEDS: INSULIN ASPART (NovoLOG) 100 UNIT/ML VIAL SQ SCH ×4 (07:34→20:00)
[2019-03-29 07:37] LABS: Basophils % (A) 0 %; Eosinophils % (A) 0 %; HCT 42.8 % (34.0-46.0); HGB 14.9 gm/dL (11.4-16.0); Lymphocytes # (A) 1.3 k/uL (1.0-4.8); Lymphocytes % (A) 12 %; MCH 32.6 pg (25.0-35.0); MCHC 34.9 g/dL (31.0-37.0); MCV 93.5 fL (80.0-100.0); Mean Platelet Volume 5.6; Monocytes # (A) 0.4 k/uL (0-1.0); Monocytes % (A) 4 %; Neutrophils # (A) 8.4 k/uL (1.3-7.7); Neutrophils % (A) 83 %; Platelet Count 335 k/uL (150-450); RBC 4.58 m/uL (3.80-5.40); RDW 12.2 % (11.5-15.5); WBC 10.1 k/uL (3.8-10.6)
[2019-03-29 07:41] LABS: African American GFR (CKD) >90 (>60 ml/min/1.73 sqM); Anion Gap 12 mmol/L; Blood Urea Nitrogen 9 mg/dL (7-17); Calcium 9.1 mg/dL (8.4-10.2); Carbon Dioxide 22 mmol/L (22-30); Chloride 103 mmol/L (98-107); Magnesium 1.8 mg/dL (1.6-2.3); Phosphorus 3.7 mg/dL (2.5-4.5); Potassium 4.4 mmol/L (3.5-5.1); Sodium 137 mmol/L (137-145)
[2019-03-29] MEDS: PANTOPRAZOLE 40 MG/10 ML VIAL IV SCH (07:45)
[2019-03-29] MEDS: ALBUTEROL NEBULIZED 2.5 MG/3 ML INHALATION SCH ×4 (08:51→21:09)
--- NOTE | 2019-03-29 09:32 | CONS ---
CONSULTATION This is a 39-year-old white female, status post gastric sleeve surgery for consult. No chest pain, shortness of breath, lightheadedness, dizziness, syncope. PRIOR SURGERY: , cholecystectomy, ear surgery, hysterectomy, and tubal ligation. PAST MEDICAL HISTORY: Asthma, diabetes, GERD, dyslipidemia. REVIEW OF SYSTEMS: Fourteen-point review of systems negative except for mentioned in HPI. HOME MEDICINES: Glucotrol 10 at breakfast, Lipitor 40 q.a.m., Vyvanse 60 a.m., Wellbutrin XR 150 q.a.m., Qvar 80 two puffs b.i.d., Prilosec 20 daily, tramadol 100 p.r.n. ALLERGIES: PENICILLIN and SULFA. PHYSICAL EXAMINATION: Vital signs stable. Afebrile. CARDIOVASCULAR: S1, S2. LUNGS: Clear. GI: Soft. HEMATOLOGY: Negative Homans. PSYCH: Fair mood and affect. ASSESSMENT: 1. Morbid obesity. 2. Severe . 3. Status post laparoscopic sleeve. 4. Diabetes. 5. Hypertension. 6. Attention deficit disorder. Please see further orders. MMODL / IJN: [id number] /
--- NOTE | 2019-03-29 10:12 | FL ---
EXAMINATION TYPE: FL UGI DATE OF EXAM: 03/29/2019 CLINICAL HISTORY: Status post gastric sleeve fluoro using 0.58 mins time. Centimeters and 18. Contrast: Omnipaque 350 50 mL The patient ingested contrast without difficulty or delay. Noted are postsurgical changes of gastric sleeve. There is no evidence for leak or obstruction. Contrast is noted within the duodenum. Dur ing the examination the patient experienced bloody emesis. IMPRESSION: Post-surgical change of gastric sleeve without evidence for obstruction or leak at this point in time.
[2019-03-29 11:49] LABS: Glucose,Whole Blood 119 mg/dL (75-99)
--- NOTE | 2019-03-29 13:22 | P.PN ---
Subjective Progress Note Date: 03/29/19 CHIEF COMPLAINT: Morbid obesity HISTORY OF PRESENT ILLNESS: 39-year-old female who is status post laparoscopic sleeve gastrectomy and repair of hiatal hernia. Postoperative day #1. Patient examined at the bedside with Dr. Madison. Patient is currently laying in bed. She reports she is tired. Pain is tolerable. Esophagram completed postoperatively negative for leak obstruction. Tolerating small amounts of liquids. Vital signs stable. PHYSICAL EXAM: VITAL SIGNS: Reviewed. GENERAL: Well-developed in no acute distress. HEENT: No sclera icterus. Extraocular movements grossly intact. Moist buccal mucosa. Head is atraumatic, normocephalic. ABDOMEN: Soft. Nondistended. Appropriate surgical tenderness. Laparoscopic surgical sites clean dry and intact without drainage. NEUROLOGIC: Alert and oriented. Cranial nerves II through XII grossly intact. ASSESSMENT: 1. Morbid obesity, status post laparoscopic sleeve gastrectomy and repair of hiatal hernia PLAN: 1. Continue clear liquid diet 2. Pain control 3 Increase activity as tolerated 4. Incentive spirometry 5. Anticipate discharge home tomorrow Nurse practitioner note has been reviewed by physician. Signing provider agrees with the documented findings, assessment, and plan of care. Objective - Vital Signs Vital signs: Vital Signs Temp 98.1 F 03/29/19 12:21 Pulse 102 H 03/29/19 12:21 Resp 20 03/29/19 12:21 BP 129/83 03/29/19 12:21 Pulse Ox 97 03/29/19 12:21 Intake & Output 03/28/19 03/29/19 03/29/19 18:59 06:59 18:59 Intake Total 1800 20 Output Total 10 2450 Balance 1790 -2430 Intake: IV 1800 Oral 20 Output: Urine 2450 Estimated Blood Loss 10 Other: Voiding Method Indwelling Catheter # Voids 1 - Labs CBC & Chem 7: 03/29/19 06:41 03/29/19 06:41 Labs: Abnormal Lab Results - Last 24 Hours (Table) 03/28/19 03/28/19 03/28/19 Range/Units 15:31 17:07 20:26 Neutrophils # (1.3-7.7) k/uL POC Glucose (mg/dL) 259 H 223 H 176 H (75-99) mg/dL 11/14/19 11/14/19 11/14/19 Range/Units 06:41 07:10 11:36 Neutrophils # 8.4 H (1.3-7.7) k/uL POC Glucose (mg/dL) 132 H 119 H (75-99) mg/dL
[2019-03-29] MEDS: ONDANSETRON 4 MG/2 ML VIAL IVP PRN ×2 (13:30→23:20)
[2019-03-29 16:47] LABS: Glucose,Whole Blood 134 mg/dL (75-99)
[2019-03-29 20:06] LABS: Glucose,Whole Blood 151 mg/dL (75-99)
[2019-03-30] MEDS: LACTATED RINGERS 1,000 ML IV SCH ×2 (03:16→23:50)
[2019-03-30] MEDS: ENOXAPARIN 40 MG/0.4 ML SYRINGE SQ SCH ×2 (05:09→17:42)
[2019-03-30] MEDS: KETOROLAC 30 MG/ML 1 ML VIAL IVP SCH ×2 (05:09→12:38)
[2019-03-30] MEDS: 0.9% NACL WITH KCL 20 MEQ/L 1,000 ML IV SCH ×3 (05:10→23:08)
[2019-03-30 07:22] LABS: Glucose,Whole Blood 131 mg/dL (75-99)
[2019-03-30] MEDS: PANTOPRAZOLE 40 MG/10 ML VIAL IV SCH (08:25)
[2019-03-30] MEDS: INSULIN ASPART (NovoLOG) 100 UNIT/ML VIAL SQ SCH ×4 (08:31→20:22)
[2019-03-30] MEDS: ALBUTEROL NEBULIZED 2.5 MG/3 ML INHALATION SCH ×4 (08:44→20:16)
[2019-03-30] MEDS: DEXAMETHASONE SOD PHOSPHATE 4 MG/ML 1 ML VIAL IV SCH ×3 (09:32→23:07)
[2019-03-30] MEDS: METOCLOPRAMIDE 5 MG/ML 2 ML VIAL IVP SCH ×3 (09:33→23:07)
[2019-03-30 11:52] LABS: Glucose,Whole Blood 135 mg/dL (75-99)
[2019-03-30] MEDS ORDERED: METOCLOPRAMIDE 5 MG/ML 2 ML VIAL IVP SCH (12:00)
[2019-03-30] MEDS ORDERED: DEXAMETHASONE SOD PHOSPHATE 4 MG/ML 1 ML VIAL IV SCH (12:00)
--- NOTE | 2019-03-30 13:07 | P.PN ---
Subjective Progress Note Date: 03/30/19 CHIEF COMPLAINT: Morbid obesity HISTORY OF PRESENT ILLNESS: 39-year-old female who is status post laparoscopic sleeve gastrectomy and repair of hiatal hernia. Postoperative day #2. Patient examined at the bedside with Dr. Madison. Patient states she is having difficulty with clear liquids. She feels like liquids are getting stuck when she drinks. She reports all liquids have been coming back up. Pain tolerable. Patient has been up ambulating in the hallway. PHYSICAL EXAM: VITAL SIGNS: Reviewed. GENERAL: Well-developed in no acute distress. HEENT: No sclera icterus. Extraocular movements grossly intact. Moist buccal mucosa. Head is atraumatic, normocephalic. ABDOMEN: Soft. Nondistended. Appropriate surgical tenderness. Laparoscopic surgical sites clean dry and intact without drainage. NEUROLOGIC: Alert and oriented. Cranial nerves II through XII grossly intact. ASSESSMENT: 1. Morbid obesity, status post laparoscopic sleeve gastrectomy and repair of hiatal hernia PLAN: 1. Begin Decadron 4 mg IV every 6 hours. Add Reglan 10 mg IV every 6 hours 2. Pain control 3 Increase activity as tolerated 4. Incentive spirometry 5. Discontinue Monsalve catheter 6. Possible discharge home tomorrow if patient is able to tolerate oral fluids Nurse practitioner note has been reviewed by physician. Signing provider agrees with the documented findings, assessment, and plan of care. Objective - Vital Signs Vital signs: Vital Signs Temp 98.2 F 03/30/19 11:58 Pulse 73 03/30/19 11:58 Resp 18 03/30/19 11:58 BP 147/81 03/30/19 11:58 Pulse Ox 97 03/30/19 11:58 Intake & Output 03/29/19 03/30/19 03/30/19 18:59 06:59 18:59 Intake Total 240 Output Total 1200 1900 3000 Balance -1200 -1660 -3000 Intake: Oral 240 Output: Urine 1200 1900 3000 Uretheral (Monsalve) 1500 Other: Voiding Method Indwelling Catheter Indwelling Catheter - Labs CBC & Chem 7: 03/29/19 06:41 03/29/19 06:41 Labs: Abnormal Lab Results - Last 24 Hours (Table) 03/29/19 03/29/19 03/30/19 Range/Units 16:35 19:54 07:12 POC Glucose (mg/dL) 134 H 151 H 131 H (75-99) mg/dL 03/30/19 Range/Units 11:38 POC Glucose (mg/dL) 135 H (75-99) mg/dL
[2019-03-30 16:49] LABS: Glucose,Whole Blood 161 mg/dL (75-99)
[2019-03-30 20:32] LABS: Glucose,Whole Blood 148 mg/dL (75-99)
--- NOTE | 2019-03-30 22:41 | PN ---
PROGRESS NOTE Aeibhd-fzvkv-losb-old white female, status post gastric sleeve, postoperative day 2. Difficulty with clear liquids. She is still on Accu-Chek protocol. She has been ambulating in the hallway. CARDIOVASCULAR: S1, S2. LUNGS: Clear. GI: Soft. HEMATOLOGY: Negative Homans. ASSESSMENT: 1. Morbid obesity, status post gastrectomy. 2. Diabetes mellitus. 3. Difficulty swallowing. starting Decadron today and [place]lan. Pain control. Possible discharge home in the morning. MMODL / IJN: [id number] /
[2019-03-31] MEDS: ENOXAPARIN 40 MG/0.4 ML SYRINGE SQ SCH (05:16)
[2019-03-31] MEDS: DEXAMETHASONE SOD PHOSPHATE 4 MG/ML 1 ML VIAL IV SCH (05:17)
[2019-03-31] MEDS: METOCLOPRAMIDE 5 MG/ML 2 ML VIAL IVP SCH (05:17)
[2019-03-31 07:08] LABS: Glucose,Whole Blood 140 mg/dL (75-99)
[2019-03-31] MEDS: INSULIN ASPART (NovoLOG) 100 UNIT/ML VIAL SQ SCH (07:32)
[2019-03-31] MEDS: PANTOPRAZOLE 40 MG/10 ML VIAL IV SCH (07:40)
[2019-03-31 07:41] VITALS: BP 97/61; PULSE 67; RESP 17; TEMP 98.1
[2019-03-31] MEDS: 0.9% NACL WITH KCL 20 MEQ/L 1,000 ML IV SCH (07:42)
[2019-03-31] MEDS: ALBUTEROL NEBULIZED 2.5 MG/3 ML INHALATION SCH (09:07)
[2019-03-31] MEDS: ONDANSETRON 4 MG/2 ML VIAL IVP PRN (09:21)
--- NOTE | 2019-03-31 10:47 | P.DS ---
Providers Date of admission: 03/28/19 08:50 Expected date of discharge: 03/31/19 Attending physician: Brando Madison Consults: 03/28/19 15:12 Consult Physician Routine Consulting Provider: Chris Valenzuela Reason/Comments: Medical management Do you want consulting provider notified?: Yes [facility] Course: This a 31-year-old female who underwent laparoscopic sleeve gastrectomy. Please see hospital chart for details. Procedures: Laparoscopic sleeve gastrectomy Patient Condition at Discharge: Good Plan - Discharge Summary Discharge Rx Participant: Yes New Discharge Prescriptions: New Sucralfate [Carafate] 1 gm PO BID #500 ml Bisacodyl [Dulcolax] 5 mg PO DAILY PRN #10 tablet.dr PRN Reason: Constipation Simethicone 40 mg/0.6 ml Drops [Mylicon Drops] 40 mg PO PCHS PRN #30 ml PRN Reason: gas Hydrocodone/Acetaminophen [[place] 5-325] 1 tab PO Q6HR PRN 3 Days #12 tab PRN Reason: Pain Omeprazole 40 mg PO DAILY #30 cap Ondansetron Odt [Zofran Odt] 4 mg PO Q8HR PRN #9 tab PRN Reason: Nausea Discontinued Omeprazole [PriLOSEC] 20 mg PO QAM No Action Atorvastatin [Lipitor] 40 mg PO QAM glipiZIDE [Glucotrol] 10 mg PO AC-BRKFST Lisdexamfetamine Dimesylate [Vyvanse] 60 mg PO QAM metFORMIN HCL [Glucophage] 1,000 mg PO QAM buPROPion XL [Wellbutrin XL] 150 mg PO QAM Beclomethasone Dip 80 Mcg/Puff [Qvar 80 mcg] 1 puff INHALATION DIRECTED PRN PRN Reason: Shortness Of Breath traMADol HCL 100 mg PO DIRECTED PRN PRN Reason: Migraine Headache Discharge Medication List Atorvastatin [Lipitor] 40 mg PO QAM 09/12/15 [History] Lisdexamfetamine Dimesylate [Vyvanse] 60 mg PO QAM 08/11/18 [History] glipiZIDE [Glucotrol] 10 mg PO AC-BRKFST 08/11/18 [History] metFORMIN HCL [Glucophage] 1,000 mg PO QAM 08/11/18 [History] buPROPion XL [Wellbutrin XL] 150 mg PO QAM 01/29/19 [History] Beclomethasone Dip 80 Mcg/Puff [Qvar 80 mcg] 1 puff INHALATION DIRECTED PRN 02/15/19 [History] traMADol HCL 100 mg PO DIRECTED PRN 03/26/19 [History] Bisacodyl [Dulcolax] 5 mg PO DAILY PRN #10 tablet. 03/30/19 [Rx] Hydrocodone/Acetaminophen [[place] 5-325] 1 tab PO Q6HR PRN 3 Days #12 tab 03/30/19 [Rx] Omeprazole 40 mg PO DAILY #30 cap 03/30/19 [Rx] Ondansetron Odt [Zofran Odt] 4 mg PO Q8HR PRN #9 tab 03/30/19 [Rx] Simethicone 40 mg/0.6 ml Drops [Mylicon Drops] 40 mg PO PCHS PRN #30 ml 03/30/19 [Rx] Sucralfate [Carafate] 1 gm PO BID #500 ml 03/30/19 [Rx]
== END 2019-03-31 12:18 | disposition home or self-care (01) | DRG 621 ==
LOC: 2ORMAIN 08:50 → 4SSUR 15:28
PROVIDERS: ADMIT Surgery; ATTEND Surgery
PROC: 0DB64Z3 Excision of Stomach, Percutaneous Endoscopic Approach, Vertical (ICD-10-PCS; principal; 2019-03-28 12:10)
PROC: 0BQT4ZZ Repair Diaphragm, Percutaneous Endoscopic Approach (ICD-10-PCS; principal; 2019-03-28 12:10)
DX: E66.01 Morbid (severe) obesity due to excess calories (principal); E11.9 Type 2 diabetes mellitus without complications; E78.5 Hyperlipidemia, unspecified; F32.9 Major depressive disorder, single episode, unspecified; F90.9 Attention-deficit hyperactivity disorder, unspecified type; F98.8 Other specified behavioral and emotional disorders with onset usually occurring in childhood and adolescence; I10 Essential (primary) hypertension; J45.909 Unspecified asthma, uncomplicated; K21.9 Gastro-esophageal reflux disease without esophagitis; G43.909 Migraine, unspecified, not intractable, without status migrainosus; I25.10 Atherosclerotic heart disease of native coronary artery without angina pectoris; K29.50 Unspecified chronic gastritis without bleeding; K44.9 Diaphragmatic hernia without obstruction or gangrene; Z68.39 Body mass index [BMI] 39.0-39.9, adult; Z79.84 Long term (current) use of oral hypoglycemic drugs; Z82.49 Family history of ischemic heart disease and other diseases of the circulatory system; Z83.3 Family history of diabetes mellitus; Z87.891 Personal history of nicotine dependence; Z90.710 Acquired absence of both cervix and uterus; Z98.891 History of uterine scar from previous surgery; Z90.49 Acquired absence of other specified parts of digestive tract; Z98.890 Other specified postprocedural states; Z98.51 Tubal ligation status; Z88.0 Allergy status to penicillin; Z88.2 Allergy status to sulfonamides
CPT/HCPCS: 74240; 76942; 80051; 82310; 82565; 83735; 84100; 84520; 85025; 88307; 94760; 94762

== ENCOUNTER → 2019-04-02 | Outpatient (CLI) | payer OTHER ==
[2019-04-02 17:07] VITALS: BMI 37.4
[2019-04-02 17:16] VITALS: BP 134/67; PULSE 98; TEMP 97.4
--- NOTE | 2019-04-02 17:48 | P.HPBAR ---
Bariatric H&P - History & Physicial H&P Date: 04/02/19 History & Physicial: Visit/CC: 5 day post sleeve f/u (sx 03/28/19) Patient initial contact: Initial weight: 119.748 kg Initial weight in pounds: 264.00 Height: 5 ft 7 in Initial BMI: 41.3 Last weight: Current weight: 108.409 kg Current weight in pounds: 239.00 Current BMI: 37.4 [place] body weight (based on NIH guidelines): 61.36 kg Excess body weight loss: 19.3% The patient is a 39 year-old F who presents for Bariatric Assessment. The patient is one-week postop from gastric sleeve. She is doing quite well. She has no complaints. She has minimal incisional pain. Past Medical History Past Medical History: Asthma, Diabetes Mellitus, GERD/Reflux, Hyperlipidemia Additional Past Medical History / Comment(s): "Sport induced asthma." Migraines. History of Any Multi-Drug Resistant Organisms: None Reported Past Surgical History: Bariatric Surgery, Section, Cholecystectomy, Ear Surgery, Hysterectomy, Tubal Ligation Additional Past Surgical History / Comment(s): RECONSTRUCTION OF RIGHT EAR DRUM;. Gastric sleeve 03/28/19 (Dr. Madison) Past Anesthesia/Blood Transfusion Reactions: Motion Sickness Past Psychological History: ADD/ADHD, Depression Additional Psychological History / Comment(s): ADHD. Smoking Status: Former smoker Past Alcohol Use History: None Reported Additional Past Alcohol Use History / Comment(s): Quit smoking 16 yrs ago, smoked socially as a teenager. Past Drug Use History: None Reported - Past Family History Mother Family Medical History: Coronary Artery Disease (CAD), CVA/TIA, Diabetes Mellitus, Deep Vein Thrombosis (DVT) Surgical - Exam Vital Signs Temp Pulse BP 97.4 F L 98 134/67 04/02/19 16:36 04/02/19 16:36 04/02/19 16:36 - General well developed, well nourished, no distress - Eyes PERRL - ENT normal pinna - Respiratory normal expansion - Cardiovascular Rhythm: regular - Abdomen Abdomen: soft, non tender Bariatric Assessment & Plan Plan: Status post sleeve gastrectomy. Patient had excellent weight loss. She'll foll ow-up in 2 weeks. Bariatric Checklist Checklist: Plan: Checklist: EGD: 1. Hiatal hernia: 2. H. Pylori: HgbA1c: Vitamin D: Smoking: Former smoker Primary care physician referral: Chris Valenzuela Psychiatry clearance: Cardiology clearance: Sleep study: Diet journal: VTE risk score: VTE risk level: Rehab needs at discharge:
== END | disposition home or self-care (01) ==
LOC: BARWHC3 16:19
PROVIDERS: ATTEND Surgery
DX: Z09 Encounter for follow-up examination after completed treatment for conditions other than malignant neoplasm (principal); Z98.84 Bariatric surgery status; E88.01 Alpha-1-antitrypsin deficiency; Z68.37 Body mass index [BMI] 37.0-37.9, adult
CPT/HCPCS: 97803; G0463; 99211

== ENCOUNTER 2019-04-04 18:37 | Emergency (ER) | payer OTHER ==
--- NOTE | 2019-04-04 19:02 | ED ---
Chest Pain HPI - General Chief Complaint: Chest Pain Stated Complaint: vomiting and chest pain Time Seen by Provider: 04/04/19 18:46 Source: patient Mode of arrival: ambulatory Limitations: no limitations - History of Present Illness Initial Comments: Patient is a 39-year-old female with diabetes is presenting to the emergency room with a chief complaint of chest pain. Patient reports she developed epigastric and midsternal chest pain that is sharp in nature about 1.5 hours ago. Patient reports immediately after the onset she developed nausea and 1 episode of nonbilious vomiting with no hematemesis. She reports a hiatal hernia and gastric sleeve procedure performed [address] Mota. Patient reports the pain is only in 3 at this moment. Patient denies any episodes of diaphoresis or any radiation of the chest pain. Patient reports a history of mitral valve prolapse. Patient has no complaints at this time. Patient denies shortness of breath or dyspnea on exertion. Patient reports the pain is noticeable with palpation. - Related Data Home Medications Medication Instructions Recorded Confirmed Atorvastatin [Lipitor] 40 mg PO DAILY 09/12/15 04/04/19 Lisdexamfetamine Dimesylate 60 mg PO DAILY 08/11/18 04/04/19 [Vyvanse] glipiZIDE [Glucotrol] 10 mg PO DAILY 08/11/18 04/04/19 metFORMIN HCL [Glucophage] 500 mg PO BID 08/11/18 04/04/19 Beclomethasone Dip 80 Mcg/Puff 1 - 2 puff INHALATION RT-BID PRN 02/15/19 04/04/19 [Qvar 80 mcg] traMADol HCL 50 mg PO Q6H PRN 03/26/19 04/04/19 buPROPion HCL [Wellbutrin XL] 300 mg PO DAILY 04/04/19 04/04/19 Previous Rx's Medication Instructions Recorded Bisacodyl [Dulcolax] 5 mg PO DAILY PRN #10 tablet. 03/30/19 Hydrocodone/Acetaminophen [[place] 1 tab PO Q6HR PRN 3 Days #12 tab 03/30/19 5-325] Omeprazole 40 mg PO DAILY #30 cap 03/30/19 Ondansetron Odt [Zofran Odt] 4 mg PO Q8HR PRN #9 tab 03/30/19 Simethicone 40 mg/0.6 ml Drops 40 mg PO PCHS PRN #30 ml 03/30/19 [Mylicon Drops] Sucralfate [Carafate] 1 gm PO BID #500 ml 03/30/19 Ondansetron Odt [Zofran Odt] 4 mg PO Q8HR PRN #10 tab 04/04/19 Allergies Allergy/AdvReac Type Severity Reaction Status Date / Time Penicillins Allergy Anaphylaxis Verified 04/04/19 21:16 Sulfa (Sulfonamide Allergy Unknown Verified 04/04/19 21:16 Antibiotics) Review of Systems ROS Statement: Those systems with pertinent positive or pertinent negative responses have been documented in the HPI. ROS Other: All systems not noted in ROS Statement are negative. EKG Findings - EKG Comments: EKG Findings:: Normal sinus rhythm, no ST changes. Ventricular rate 70 MO interval 170, QRS duration 82, QT/QTC 396/427 Past Medical History Past Medical History: Asthma, Diabetes Mellitus, GERD/Reflux, Hyperlipidemia Additional Past Medical History / Comment(s): "Sport induced asthma." Migraines. History of Any Multi-Drug Resistant Organisms: None Reported Past Surgical History: Bariatric Surgery, Section, Cholecystectomy, Ear Surgery, Hysterectomy, Tubal Ligation Additional Past Surgical History / Comment(s): RECONSTRUCTION OF RIGHT EAR DRUM;. Gastric sleeve 03/28/19 (Dr. Madison) Past Anesthesia/Blood Transfusion Reactions: Motion Sickness Past Psychological History: ADD/ADHD, Depression Smoking Status: Former smoker Past Alcohol Use History: None Reported Past Drug Use History: None Reported - Past Family History Mother Family Medical History: Coronary Artery Disease (CAD), CVA/TIA, Diabetes Mellitus, Deep Vein Thrombosis (DVT) General Exam Limitations: no limitations General appearance: alert, in no apparent distress Head exam: Present: atraumatic, normocephalic, normal inspection Eye exam: Present: normal appearance Pupils: Present: normal accommodation ENT exam: Present: normal exam, normal oropharynx, mucous membranes moist, TM's normal bilaterally, normal external ear exam Neck exam: Present: normal inspection, full ROM Respiratory exam: Present: normal lung sounds bilaterally, chest wall tenderness (Midsternal tenderness to palpation.) GI/Abdominal exam: Present: soft, tenderness (Epigastric), normal bowel sounds, other (Multiple laproscopic incision sites). Absent: guarding, rebound Extremities exam: Present: normal inspection, full ROM Back exam: Present: normal inspection, full ROM Neurological exam: Present: alert, oriented X3 Psychiatric exam: Present: normal affect, normal mood Skin exam: Present: warm, dry, intact, normal color Course Vital Signs 04/04/19 04/04/19 04/04/19 18:39 20:18 21:54 Temperature 98.0 F 98.4 F Pulse Rate 96 75 74 Respiratory 16 18 18 Rate Blood Pressure 112/79 102/58 113/67 O2 Sat by Pulse 97 100 99 Oximetry Chest Pain MDM - Core Measures AMI Core Measures Followed: No Cap Core Measures Followed: No - Differential Diagnosis Chest Wall Syndrome - MDM Patient at 39-year-old female presenting to the emergency department with a chief complaint of abdominal pain. Physical examination is indicative of epigastric and midsternal chest pain that is reproducible palpation. Auscultation is unremarkable. Initial troponins are negative. Chest is unremarkable. EKG shows normal sinus rhythm with no ST changes. Patient given symptomatic relief and fluids. CT of the abdomen and pelvis is typical inflammatory postoperative changes. I suspect these to be the cause of the her symptoms. No signs of free air. CBC CMP are unremarkable. Initial troponins negative. I suspect the patient to have atypical chest pain. Patient discharged and advised to follow-up with the surgeon. Strict return parameters were thoroughly discussed with patient was understanding and agreeable. Patient discharged with Zofran. Case discussed with physician. Disposition Clinical Impression: Abdominal pain, Atypical chest pain, Postoperative pain Disposition: HOME SELF-CARE Condition: Stable Instructions (If sedation given, give patient instructions): Acute Abdominal Pain (ED) Additional Instructions: Please follow up with primary care. Please return to emergency department if symptoms worsen. Prescriptions: Ondansetron Odt [Zofran Odt] 4 mg PO Q8HR PRN #10 tab PRN Reason: Nausea Is patient prescribed a controlled substance at d/c from ED?: No Referrals: Chris Valenzuela MD [Primary Care Provider] - 1-2 days Time of Disposition: 21:50
[2019-04-04 19:15] LABS: Basophils # (A) 0.1 k/uL (0-0.2); Basophils % (A) 2 %; Eosinophils # (A) 0.2 k/uL (0-0.7); Eosinophils % (A) 2 %; HCT 43.3 % (34.0-46.0); Lymphocytes # (A) 2.6 k/uL (1.0-4.8); Lymphocytes % (A) 27 %; MCHC 34.6 g/dL (31.0-37.0); MCV 92.6 fL (80.0-100.0); Mean Platelet Volume 6.1; Monocytes # (A) 0.3 k/uL (0-1.0); Monocytes % (A) 3 %; Neutrophils # (A) 6.3 k/uL (1.3-7.7); Neutrophils % (A) 66 %; Platelet Count 337 k/uL (150-450); RBC 4.68 m/uL (3.80-5.40); RDW 12.5 % (11.5-15.5); WBC 9.7 k/uL (3.8-10.6)
[2019-04-04 19:24] LABS: ALT 82 U/L (9-52); AST 48 U/L (14-36); African American GFR (CKD) >90 (>60 ml/min/1.73 sqM); Albumin 4.2 g/dL (3.5-5.0); Alkaline Phosphatase 97 U/L (38-126); Anion Gap 10 mmol/L; Blood Urea Nitrogen 18 mg/dL (7-17); Calcium 9.5 mg/dL (8.4-10.2); Carbon Dioxide 24 mmol/L (22-30); Chloride 104 mmol/L (98-107); Glucose 137 mg/dL (74-99); INR 0.9 (<1.2); Non-African American GFR(CKD) >90 (>60 ml/min/1.73 sqM); Potassium 3.9 mmol/L (3.5-5.1); Prothrombin Time 10.2 sec (9.0-12.0); Sodium 138 mmol/L (137-145); Total Protein 7.1 g/dL (6.3-8.2)
--- NOTE | 2019-04-04 19:33 | XR ---
EXAMINATION TYPE: XR chest 2V DATE OF EXAM: 04/04/2019 COMPARISON: 03/28/2017 HISTORY: 39-year-old female with chest pain TECHNIQUE: PA and lateral views FINDINGS: The cardiomediastinal silhouette, aorta, and pulmonary vasculature are within normal limits. Lungs an d pleural spaces are clear. IMPRESSION: No acute cardiopulmonary process.
[2019-04-04 20:19] VITALS: RESP 18
--- NOTE | 2019-04-04 21:16 | CT ---
EXAMINATION TYPE: CT abdomen pelvis w con DATE OF EXAM: 04/04/2019 COMPARISON: 08/11/2018 HISTORY: 39-year-old female abdominal pain and vomiting 1 week post-op gastric sleeve TECHNIQUE: Contiguous axial scanning of the abdomen and pelvis following administration of 100 ml Iso gaby 300 IV contrast. Delayed images through the kidneys and coronal/sagittal reconstructions perform ed. CT DLP: 1859.9 mGycm Automated exposure control for dose reduction was used. FINDINGS: Heart normal size without pericardial effusion. Dependent atelectasis posterior lung bases. No pleura l effusion. No focal liver lesion or biliary ductal dilatation. Portal venous system is patent. Cholecystectomy clips. There is some mild fat stranding just below the GE junction and along the proximal stomach. Patient i s status post gastrectomy. Suspect recent postoperative changes and residual mild inflammation. Adrenal glands, kidneys, spleen, and pancreas appear within normal limits. A few prominent fluid-filled small bowel loops in the midabdomen. No dilated small bowel, free fluid, or free air. Normal appendix. Oral contrast progressed to the rectum. No significant stool burden. No mesenteric or retroperitoneal lymphadenopathy. Bladder is urine distended. Uterus surgically absent. Both ovaries are visualized. No abnormal fluid collection in the pelvis or pelvic lymphadenopathy. Bones: Mild degenerative disc disease and facet arthropathy lower lumbar spine. IMPRESSION: 1. RECENT SLEEVE GASTRECTOMY. THERE IS SOME MILD FAT STRANDING JUST BELOW THE GE JUNCTION AND ALONG T HE PROXIMAL STOMACH LIKELY RESIDUAL POSTOPERATIVE INFLAMMATION. NO FREE FLUID, FREE AIR, OR ABSCESS. FOLLOW-UP CLINICALLY INDICATED. 2. A FEW PROMINENT FLUID-FILLED SMALL BOWEL LOOPS IN THE MIDABDOMEN COULD REPRESENT A MILD ENTERITIS.
[2019-04-04] MEDS ORDERED: ONDANSETRON 4 MG ODT STARTER PACK 2 TAB BTL PO STA (21:33)
[2019-04-04 21:56] VITALS: BP 113/67; PULSE 74; TEMP 98.4
== END 2019-04-04 21:54 | disposition home or self-care (01) ==
LOC: EC 18:37
DX: G89.18 Other acute postprocedural pain (principal); R07.89 Other chest pain; R10.13 Epigastric pain; R11.2 Nausea with vomiting, unspecified; J45.909 Unspecified asthma, uncomplicated; E11.9 Type 2 diabetes mellitus without complications; E78.5 Hyperlipidemia, unspecified; F90.9 Attention-deficit hyperactivity disorder, unspecified type; F32.9 Major depressive disorder, single episode, unspecified; Z87.891 Personal history of nicotine dependence; Z88.0 Allergy status to penicillin; Z88.2 Allergy status to sulfonamides; Z79.84 Long term (current) use of oral hypoglycemic drugs; Z79.899 Other long term (current) drug therapy; Z87.19 Personal history of other diseases of the digestive system; Z86.79 Personal history of other diseases of the circulatory system; Z90.49 Acquired absence of other specified parts of digestive tract; Z98.84 Bariatric surgery status; Z82.49 Family history of ischemic heart disease and other diseases of the circulatory system
CPT/HCPCS: 36415; 93005; 80053; 83735; 84484; 85025; 85610; 85730; 71046; 74177; 99285; S0119; Q9967

== ENCOUNTER → 2019-04-10 | Outpatient (CLI) | payer OTHER ==
[~2019-04-10] MED LIST changes: -DEXAMETHASONE SOD PHOSPHATE 10 MG/ML 1 ML VIAL IV ONE; -ENOXAPARIN 40 MG/0.4 ML SYRINGE SQ ONE; -HYDROmorphone 0.5 MG/0.5 ML SYRINGE IVP PRN; -LIDOCAINE 1% 20 ML VIAL (10MG/ML) FOR IV START INTRADERMA PRN; -MIDAZOLAM 2 MG/2 ML VIAL IV PRN; -ONDANSETRON 4 MG/2 ML VIAL IVP ONE; -SCOPOLAMINE 1.5MG/72HR PATCH TRANSDERM ONE; +SODIUM CHLORIDE 0.9% 1,000 ML IV ONE
[2019-04-10 15:30] VITALS: BP 111/69; PULSE 68; RESP 16; TEMP 98.2
== END ==
LOC: PROCWHC3 14:43
PROVIDERS: ATTEND Surgery
DX: E86.0 Dehydration (principal)
CPT/HCPCS: 96360

== ENCOUNTER → 2019-04-16 | Outpatient (CLI) | payer OTHER ==
[2019-04-16 17:04] VITALS: BMI 35.9
[2019-04-18 10:18] VITALS: BP 107/73; PULSE 66; TEMP 97.4
--- NOTE | 2019-06-03 12:50 | P.HPBAR ---
Bariatric H&P - History & Physicial H&P Date: 04/16/19 History & Physicial: Visit/CC: sleeve follow up Patient initial contact: Initial weight: 119.748 kg Initial weight in pounds: 264.00 Height: 5 ft 7 in Initial BMI: 41.3 Last weight: Current weight: 103.873 kg Current weight in pounds: 229.00 Current BMI: 35.9 [place] body weight (based on NIH guidelines): 63.503 kg Excess body weight loss: 27.1% The patient is a 39 year-old F who presents for Bariatric Assessment. Patient rents today for sleeve gastric fall. She is doing quite well. She lost 10 pounds her last visit. She's had some mild GERD. Past Medical History Past Medical History: Asthma, Diabetes Mellitus, GERD/Reflux, Hyperlipidemia Additional Past Medical History / Comment(s): "Sport induced asthma." Migraines. History of Any Multi-Drug Resistant Organisms: None Reported Past Surgical History: Bariatric Surgery, Section, Cholecystectomy, Ear Surgery, Hysterectomy, Tubal Ligation Additional Past Surgical History / Comment(s): RECONSTRUCTION OF RIGHT EAR DRUM;. Gastric sleeve 03/28/19 (Dr. Madison) Past Anesthesia/Blood Transfusion Reactions: Motion Sickness Past Psychological History: ADD/ADHD, Depression Additional Psychological History / Comment(s): ADHD. Smoking Status: Former smoker Past Alcohol Use History: None Reported Additional Past Alcohol Use History / Comment(s): Quit smoking 16 yrs ago, smoked socially as a teenager. Past Drug Use History: None Reported - Past Family History Mother Family Medical History: Coronary Artery Disease (CAD), CVA/TIA, Diabetes Mellitus, Deep Vein Thrombosis (DVT) Surgical - Exam Vital Signs Temp Pulse BP 97.4 F L 66 107/73 04/16/19 14:00 04/16/19 14:00 04/16/19 14:00 - General well developed, no distress - Abdomen Abdomen: soft, non tender Bariatric Assessment & Plan Plan: Status post sleeve yesterday. Patient had excellent weight loss. Her GERD is minimal will be observed. She'll follow-up in 4 weeks. Bariatric Checklist Checklist: Plan: Checklist: EGD: 1. Hiatal hernia: 2. H. Pylori: HgbA1c: Vitamin D: Smoking: Former smoker Primary care physician referral: Dr. Valenzuela Psychiatry clearance: Cardiology clearance: Sleep study: Diet journal: VTE risk score: VTE risk level: Rehab needs at discharge:
== END | disposition home or self-care (01) ==
LOC: BARWHC3 13:30
PROVIDERS: ATTEND Surgery
DX: Z09 Encounter for follow-up examination after completed treatment for conditions other than malignant neoplasm (principal); Z98.84 Bariatric surgery status; E66.01 Morbid (severe) obesity due to excess calories; Z68.35 Body mass index [BMI] 35.0-35.9, adult; E11.9 Type 2 diabetes mellitus without complications; E78.5 Hyperlipidemia, unspecified; J45.909 Unspecified asthma, uncomplicated
CPT/HCPCS: 97803; G0463; 99211

== ENCOUNTER → 2019-05-21 | Outpatient (CLI) | payer OTHER ==
[2019-05-21 14:57] VITALS: BP 133/75; PULSE 76; TEMP 97.8; BMI 33.2
--- NOTE | 2019-05-21 15:48 | P.HPBAR ---
Bariatric H&P - History & Physicial H&P Date: 05/21/19 History & Physicial: Visit/CC: two month follow up Patient initial contact: Initial weight: 119.748 kg Initial weight in pounds: 264.00 Height: 5 ft 7 in Initial BMI: 41.3 Last weight: Current weight: 96.162 kg Current weight in pounds: 212.00 Current BMI: 33.2 [place] body weight (based on NIH guidelines): 61.235 kg Excess body weight loss: 40.3% The patient is a 39 year-old F who presents for Bariatric Assessment. Patient presents today for sleeve gastrectomy follow-up. She's had some complaints of mild GERD. She's had excellent weight loss. Past Medical History Past Medical History: Asthma, Diabetes Mellitus, GERD/Reflux, Hyperlipidemia Additional Past Medical History / Comment(s): "Sport induced asthma." Migraines. History of Any Multi-Drug Resistant Organisms: None Reported Past Surgical History: Bariatric Surgery, Section, Cholecystectomy, Ear Surgery, Hysterectomy, Tubal Ligation Additional Past Surgical History / Comment(s): RECONSTRUCTION OF RIGHT EAR DRUM;. Gastric sleeve 03/28/19 (Dr. Madison) Past Anesthesia/Blood Transfusion Reactions: Motion Sickness Past Psychological History: ADD/ADHD, Depression Additional Psychological History / Comment(s): ADHD. Smoking Status: Former smoker Past Alcohol Use History: None Reported Additional Past Alcohol Use History / Comment(s): Quit smoking 16 yrs ago, smoked socially as a teenager. Past Drug Use History: None Reported - Past Family History Mother Family Medical History: Coronary Artery Disease (CAD), CVA/TIA, Diabetes Mellitus, Deep Vein Thrombosis (DVT) Surgical - Exam Vital Signs Temp Pulse BP 97.8 F 76 133/75 05/21/19 14:52 05/21/19 14:52 05/21/19 14:52 - General well developed, well nourished, no distress - Eyes PERRL - ENT normal pinna - Neck no masses - Respiratory normal expansion - Cardiovascular Rhythm: regular - Abdomen Abdomen: soft, non tender Bariatric Assessment & Plan Plan: Status post sleeve gastrectomy. Patient is minimal old observed. She'll follow-up in 4 weeks. Bariatric Checklist Checklist: Plan: Checklist: EGD: 1. Hiatal hernia: 2. H. Pylori: HgbA1c: Vitamin D: Smoking: Former smoker Primary care physician referral: Dr. Valenzuela Psychiatry clearance: Cardiology clearance: Sleep study: Diet journal: VTE risk score: VTE risk level: Rehab needs at discharge:
== END | disposition home or self-care (01) ==
LOC: BARWHC3 14:24
PROVIDERS: ATTEND Surgery
DX: Z48.815 Encounter for surgical aftercare following surgery on the digestive system (principal); Z87.891 Personal history of nicotine dependence; Z90.49 Acquired absence of other specified parts of digestive tract; Z98.84 Bariatric surgery status
CPT/HCPCS: 97803; G0463; 99211

== ENCOUNTER → 2019-06-25 | Outpatient (CLI) | payer OTHER ==
[2019-06-25 07:47] LABS: HCT 42.4 % (34.0-46.0); HGB 14.1 gm/dL (11.4-16.0); MCH 31.6 pg (25.0-35.0); MCHC 33.3 g/dL (31.0-37.0); MCV 94.9 fL (80.0-100.0); Mean Platelet Volume 7.6; Platelet Count 288 k/uL (150-450); RBC 4.47 m/uL (3.80-5.40); WBC 6.3 k/uL (3.8-10.6)
[2019-06-25 11:37] LABS: African American GFR (CKD) 108.4 (60.0-200.0); Albumin 4.3 g/dL (3.80-4.90); Albumin/Globulin Ratio 2.26 (1.60-3.17); Anion Gap 7.8 mmol/L (4.00-12.00); Calcium 9.5 mg/dL (8.7-10.3); Carbon Dioxide 27.2 mmol/L (21.6-31.8); Globulin 1.9 g/dL (1.6-3.3); Non-African American GFR(CKD) 93.5 (60.0-200.0); Potassium 4.1 mmol/L (3.5-5.5); Total Bilirubin 0.9 mg/dL (0.2-1.2); Total Protein 6.2 g/dL (6.2-8.2)
[2019-06-25 11:50] LABS: Folate, Serum 12.1 ng/mL
[2019-06-25 14:01] VITALS: BP 115/78; PULSE 67; TEMP 97.5; BMI 30.7
--- NOTE | 2019-07-02 14:25 | P.HPBAR ---
Bariatric H&P - History & Physicial H&P Date: 06/25/19 History & Physicial: Visit/CC: 3 mos sleeve f/u Patient initial contact: Initial weight: 119.748 kg Initial weight in pounds: 264.00 Height: 5 ft 7 in Initial BMI: 41.3 Last weight: Current weight: 88.904 kg Current weight in pounds: 196.00 Current BMI: 30.7 [place] body weight (based on NIH guidelines): 61.235 kg Excess body weight loss: 52.7% The patient is a 39 year-old F who presents for Bariatric Assessment. Patient resents today for sleeve gastrectomy follow-up. She has lost 16 pounds since her last visit. She has some mild complaints of GERD. Past Medical History Past Medical History: Asthma, Diabetes Mellitus, GERD/Reflux, Hyperlipidemia Additional Past Medical History / Comment(s): "Sport induced asthma." Migraines. History of Any Multi-Drug Resistant Organisms: None Reported Past Surgical History: Bariatric Surgery, Section, Cholecystectomy, Ear Surgery, Hysterectomy, Tubal Ligation Additional Past Surgical History / Comment(s): RECONSTRUCTION OF RIGHT EAR DRUM;. Gastric sleeve 03/28/19 (Dr. Madison) Past Anesthesia/Blood Transfusion Reactions: Motion Sickness Past Psychological History: ADD/ADHD, Depression Additional Psychological History / Comment(s): ADHD. Smoking Status: Former smoker Past Alcohol Use History: None Reported Additional Past Alcohol Use History / Comment(s): Quit smoking 16 yrs ago, smoked socially as a teenager. Past Drug Use History: None Reported - Past Family History Mother Family Medical History: Coronary Artery Disease (CAD), CVA/TIA, Diabetes Mellitus, Deep Vein Thrombosis (DVT) Surgical - Exam Vital Signs Temp Pulse BP 97.5 F L 67 115/78 06/25/19 13:56 06/25/19 13:56 06/25/19 13:56 - General well developed, well nourished, no distress - Eyes PERRL - ENT normal pinna - Neck no masses - Respiratory normal expansion - Cardiovascular Rhythm: regular - Abdomen Abdomen: soft, non tender Results - Labs 06/25/19 07:30 06/25/19 07:30 Bariatric Assessment & Plan Plan: Morbid obesity. Patient will follow-up in one month. Her GERD is minimal obesity observed. Bariatric Checklist Checklist: Plan: Checklist: EGD: 1. Hiatal hernia: 2. H. Pylori: HgbA1c: Vitamin D: Smoking: Former smoker Primary care physician referral: Dr. Chris Valenzuela Psychiatry clearance: Cardiology clearance: Sleep study: Diet journal: VTE risk score: VTE risk level: Rehab needs at discharge:
== END | disposition home or self-care (01) ==
LOC: BARWHC3 07:19
PROVIDERS: ATTEND Surgery
DX: Z48.815 Encounter for surgical aftercare following surgery on the digestive system (principal); E66.01 Morbid (severe) obesity due to excess calories; K21.9 Gastro-esophageal reflux disease without esophagitis; Z68.30 Body mass index [BMI] 30.0-30.9, adult; Z87.891 Personal history of nicotine dependence; Z98.84 Bariatric surgery status; Z90.49 Acquired absence of other specified parts of digestive tract; E44.0 Moderate protein-calorie malnutrition
CPT/HCPCS: 84425; 80053; 82607; 82746; 84443; 85027; 82306; 97803; G0463; 99211

== ENCOUNTER → 2019-07-30 | Outpatient (CLI) | payer OTHER ==
[2019-07-30 13:41] VITALS: BP 112/82; PULSE 76; TEMP 98.2; BMI 29.1
== END | disposition home or self-care (01) ==
LOC: BARWHC3 13:00
PROVIDERS: ATTEND Surgery
DX: Z48.815 Encounter for surgical aftercare following surgery on the digestive system (principal); Z90.49 Acquired absence of other specified parts of digestive tract; Z98.84 Bariatric surgery status; Z87.891 Personal history of nicotine dependence
CPT/HCPCS: 99211

== ENCOUNTER → 2019-10-01 | Outpatient (CLI) | payer OTHER ==
[2019-10-01 14:34] VITALS: BP 104/67; PULSE 87; RESP 20; TEMP 98.3; BMI 26.0
--- NOTE | 2019-10-01 14:51 | P.HPBAR ---
Bariatric H&P - History & Physicial H&P Date: 10/01/19 History & Physicial: Visit/CC: Follow up visit Patient initial contact: Initial weight: 119.748 kg Initial weight in pounds: 264.00 Height: 5 ft 7 in Initial BMI: 41.3 Last weight: Current weight: 75.523 kg Current weight in pounds: 166.50 Current BMI: 26.0 [place] body weight (based on NIH guidelines): 61.235 kg Excess body weight loss: 75.5% The patient is a 39 year-old F who presents for Bariatric Assessment. Patient presents today for gastric sleeve follow-up. She's had some issues with dysphagia. She's had some minimal GERD. Past Medical History Past Medical History: Asthma, Diabetes Mellitus, GERD/Reflux, Hyperlipidemia Additional Past Medical History / Comment(s): "Sport induced asthma." Migraines. History of Any Multi-Drug Resistant Organisms: None Reported Past Surgical History: Bariatric Surgery, Section, Cholecystectomy, Ear Surgery, Hysterectomy, Tubal Ligation Additional Past Surgical History / Comment(s): RECONSTRUCTION OF RIGHT EAR DRUM;. Gastric sleeve 03/28/19 (Dr. Madison) Past Anesthesia/Blood Transfusion Reactions: Motion Sickness Past Psychological History: ADD/ADHD, Depression Additional Psychological History / Comment(s): ADHD. Smoking Status: Former smoker Past Alcohol Use History: None Reported Additional Past Alcohol Use History / Comment(s): Quit smoking 16 yrs ago, smoked socially as a teenager. Past Drug Use History: None Reported - Past Family History Mother Family Medical History: Coronary Artery Disease (CAD), CVA/TIA, Diabetes Mellitus, Deep Vein Thrombosis (DVT) Surgical - Exam Vital Signs Temp Pulse Resp BP 98.3 F 87 20 104/67 10/01/19 14:32 10/01/19 14:32 10/01/19 14:32 10/01/19 14:32 - General well developed, well nourished, no distress - Eyes PERRL - ENT normal pinna - Neck no masses - Respiratory normal expansion - Cardiovascular Rhythm: regular - Abdomen Abdomen: soft, non tender Bariatric Assessment & Plan Plan: Status post sleeve gastrectomy. Patient's dysphagia/GERD will be evaluated with esophagram today. She'll follow-up in one week. Bariatric Checklist Checklist: Plan: Checklist: EGD: 1. Hiatal hernia: 2. H. Pylori: HgbA1c: Vitamin D: Smoking: Former smoker Primary care physician referral: Dr. Chris Valenzuela Psychiatry clearance: Cardiology clearance: Sleep study: Diet journal: VTE risk score: VTE risk level: Rehab needs at discharge:
--- NOTE | 2019-10-02 09:23 | FL ---
EXAMINATION TYPE: FL esophagus cervic/pharynx DATE OF EXAM: 10/01/2019 CLINICAL HISTORY: Dysphagia weight [id number]:gastric sleeve 2018- 4 oz EZ [id number] sec ok-Dr. Drake The patient ingested contrast without difficulty or delay. Noted are postsurgical changes of gastric sleeve. There is no evidence for leak or obstruction. Contrast is noted within the duodenum. IMPRESSION: Changes of gastric sleeve without evidence for obstruction or leak at this point in time.
== END | disposition home or self-care (01) ==
LOC: BARWHC3 14:12
PROVIDERS: ATTEND Surgery
DX: Z48.815 Encounter for surgical aftercare following surgery on the digestive system (principal); Z98.84 Bariatric surgery status; Z87.891 Personal history of nicotine dependence
CPT/HCPCS: 74210; 97803; G0463; 99213

== ENCOUNTER → 2019-10-15 | Outpatient (CLI) | payer OTHER ==
[2019-10-15 13:32] VITALS: BP 110/71; PULSE 77; RESP 16; TEMP 98.7; BMI 25.6
--- NOTE | 2019-10-15 13:48 | P.HPBAR ---
Bariatric H&P - History & Physicial H&P Date: 10/15/19 History & Physicial: Visit/CC: follow up Patient initial contact: Initial weight: 119.748 kg Initial weight in pounds: 264.00 Height: 5 ft 7 in Initial BMI: 41.3 Last weight: Current weight: 74.298 kg Current weight in pounds: 163.80 Current BMI: 25.6 [place] body weight (based on NIH guidelines): 61.235 kg Excess body weight loss: 77.6% The patient is a 39 year-old F who presents for Bariatric Assessment. Patient resents today for gastric sleeve follow-up. She states her GERD is improved. She has denies any significant dysphagia. Past Medical History Past Medical History: Asthma, Diabetes Mellitus, GERD/Reflux, Hyperlipidemia Additional Past Medical History / Comment(s): "Sport induced asthma." Migraines. History of Any Multi-Drug Resistant Organisms: None Reported Past Surgical History: Bariatric Surgery, Section, Cholecystectomy, Ear Surgery, Hysterectomy, Tubal Ligation Additional Past Surgical History / Comment(s): RECONSTRUCTION OF RIGHT EAR DRUM;. Gastric sleeve 03/28/19 (Dr. Madison) Past Anesthesia/Blood Transfusion Reactions: Motion Sickness Smoking Status: Former smoker - Past Family History Mother Family Medical History: Coronary Artery Disease (CAD), CVA/TIA, Diabetes Mellitus, Deep Vein Thrombosis (DVT) Surgical - Exam Vital Signs Temp Pulse Resp BP 98.7 F 77 16 110/71 10/15/19 12:58 10/15/19 12:58 10/15/19 12:58 10/15/19 12:58 - General well developed, well nourished, no distress - Eyes PERRL - ENT normal pinna - Neck no masses - Respiratory normal expansion - Cardiovascular Rhythm: regular - Abdomen Abdomen: soft, non tender Bariatric Assessment & Plan Plan: Status post sleeve yesterday. Patient's creatinine is minimal will be observed. She'll follow-up in 4 weeks. Bariatric Checklist Checklist: Plan: Checklist: EGD: 1. Hiatal hernia: 2. H. Pylori: HgbA1c: Vitamin D: Smoking: Former smoker Primary care physician referral: Dr. Chris Valenzuela Psychiatry clearance: Cardiology clearance: Sleep study: Diet journal: VTE risk score: VTE risk level: Rehab needs at discharge:
== END | disposition home or self-care (01) ==
LOC: BARWHC3 12:58
PROVIDERS: ATTEND Surgery
DX: Z48.815 Encounter for surgical aftercare following surgery on the digestive system (principal); K21.9 Gastro-esophageal reflux disease without esophagitis; Z87.891 Personal history of nicotine dependence; Z98.84 Bariatric surgery status; Z90.89 Acquired absence of other organs; Z90.710 Acquired absence of both cervix and uterus; Z98.51 Tubal ligation status
CPT/HCPCS: 99211

== ENCOUNTER → 2020-02-04 | Outpatient (CLI) | payer OTHER ==
--- NOTE | 2020-02-04 14:35 | P.HPBAR ---
Bariatric H&P - History & Physicial H&P Date: 02/04/20 History & Physicial: Visit/CC: Patient initial contact: Initial weight: 119.748 kg Initial weight in pounds: Height: Initial BMI: Last weight: Current weight: Current weight in pounds: Current BMI: [place] body weight (based on NIH guidelines): Excess body weight loss: The patient is a 39 year-old F who presents for Bariatric Assessment. Patient rents today for sleeve gastrectomy follow-up. She is also a 10 pound since her last visit. She's had some mild GERD. Her current weight is 104 pounds. She weighed 164 pounds at her last visit 3 months ago. Past Medical History Past Medical History: Asthma, Diabetes Mellitus, GERD/Reflux, Hyperlipidemia Additional Past Medical History / Comment(s): "Sport induced asthma." Migraines. History of Any Multi-Drug Resistant Organisms: None Reported Past Surgical History: Bariatric Surgery, Section, Cholecystectomy, Ear Surgery, Hysterectomy, Tubal Ligation Additional Past Surgical History / Comment(s): RECONSTRUCTION OF RIGHT EAR DRUM;. Gastric sleeve 03/28/19 (Dr. Madison) Past Anesthesia/Blood Transfusion Reactions: Motion Sickness Past Psychological History: ADD/ADHD, Depression Additional Psychological History / Comment(s): ADHD. Past Alcohol Use History: None Reported Additional Past Alcohol Use History / Comment(s): Quit smoking 16 yrs ago, smoked socially as a teenager. Past Drug Use History: None Reported - Past Family History Mother Family Medical History: Coronary Artery Disease (CAD), CVA/TIA, Diabetes Mellitus, Deep Vein Thrombosis (DVT) Surgical - Exam - General well developed, well nourished, no distress - Eyes PERRL - ENT normal pinna - Neck no masses - Respiratory normal expansion - Cardiovascular Rhythm: regular - Abdomen Abdomen: soft, non tender Bariatric Assessment & Plan Plan: S post sleeve gastrectomy. Patient's excellent weight loss. Her GERD is minimal old observed. She'll follow-up in 2 months. She will have labs drawn today. Bariatric Checklist Checklist: Plan: Checklist: EGD: 1. Hiatal hernia: 2. H. Pylori: HgbA1c: Vitamin D: Smoking: Former smoker Primary care physician referral: Dr. Chris Valenzuela Psychiatry clearance: Cardiology clearance: Sleep study: Diet journal: VTE risk score: VTE risk level: Rehab needs at discharge:
[2020-02-04 14:49] VITALS: BP 104/68; PULSE 64; TEMP 97.8; BMI 24.1
[2020-02-04 16:12] LABS: HCT 40.4 % (34.0-46.0); HGB 13.1 gm/dL (11.4-16.0); MCH 30.8 pg (25.0-35.0); MCHC 32.5 g/dL (31.0-37.0); MCV 94.8 fL (80.0-100.0); Mean Platelet Volume 6.6; Platelet Count 294 k/uL (150-450); RBC 4.26 m/uL (3.80-5.40); RDW 12.4 % (11.5-15.5); WBC 5.8 k/uL (3.8-10.6)
[2020-02-05 02:29] LABS: African American GFR (CKD) 108.4 (60.0-200.0); Albumin 4.4 g/dL (3.80-4.90); Albumin/Globulin Ratio 2.32 (1.60-3.17); Anion Gap 9.6 mmol/L (4.00-12.00); Calcium 9.2 mg/dL (8.7-10.3); Carbon Dioxide 25.4 mmol/L (21.6-31.8); Globulin 1.9 g/dL (1.6-3.3); Non-African American GFR(CKD) 93.5 (60.0-200.0); Potassium 3.9 mmol/L (3.5-5.5); Total Bilirubin 0.6 mg/dL (0.2-1.2); Total Protein 6.3 g/dL (6.2-8.2)
[2020-02-05 03:07] LABS: Folate, Serum 21.2 ng/mL
== END | disposition home or self-care (01) ==
LOC: BARWHC3 13:51
PROVIDERS: ATTEND Surgery
DX: Z48.815 Encounter for surgical aftercare following surgery on the digestive system (principal); K21.9 Gastro-esophageal reflux disease without esophagitis; E66.01 Morbid (severe) obesity due to excess calories; E44.0 Moderate protein-calorie malnutrition; E55.9 Vitamin D deficiency, unspecified; Z68.24 Body mass index [BMI] 24.0-24.9, adult; Z87.891 Personal history of nicotine dependence; Z98.84 Bariatric surgery status; Z90.49 Acquired absence of other specified parts of digestive tract; Z90.710 Acquired absence of both cervix and uterus; Z98.51 Tubal ligation status
CPT/HCPCS: 84425; 80053; 82607; 82746; 84443; 85027; 82306; 97803; G0463; 99211

== ENCOUNTER → 2020-04-07 | Outpatient (CLI) | payer OTHER ==
[2020-04-07 13:28] VITALS: BP 106/69; PULSE 67; RESP 18; TEMP 97.8
[2020-04-07 14:19] VITALS: BMI 23.6
--- NOTE | 2020-04-17 11:58 | P.HPBAR ---
Bariatric H&P - History & Physicial H&P Date: 04/07/20 History & Physicial: Visit/CC: follow up 1 year Patient initial contact: Initial weight: 119.748 kg Initial weight in pounds: 264.00 Height: 5 ft 7 in Initial BMI: Last weight: Current weight: 68.492 kg Current weight in pounds: Current BMI: 23.6 [place] body weight (based on NIH guidelines): 61.235 kg Excess body weight loss: The patient is a 40 year-old F who presents for Bariatric Assessment. She presents today for sleeve gastrectomy follow-up. She lost approximately 110 pounds since her last visit. She's had some mild GERD. Past Medical History Past Medical History: Asthma, Diabetes Mellitus, GERD/Reflux, Hyperlipidemia Additional Past Medical History / Comment(s): "Sport induced asthma." Migraines. History of Any Multi-Drug Resistant Organisms: None Reported Past Surgical History: Bariatric Surgery, Section, Cholecystectomy, Ear Surgery, Hysterectomy, Tubal Ligation Additional Past Surgical History / Comment(s): RECONSTRUCTION OF RIGHT EAR DRUM;. Gastric sleeve 03/28/19 (Dr. Madison) Past Anesthesia/Blood Transfusion Reactions: Motion Sickness Past Psychological History: ADD/ADHD, Depression Additional Psychological History / Comment(s): ADHD. Smoking Status: Unknown if ever smoked Past Alcohol Use History: None Reported Additional Past Alcohol Use History / Comment(s): Quit smoking 16 yrs ago, s moked socially as a teenager. Past Drug Use History: None Reported - Past Family History Mother Family Medical History: Coronary Artery Disease (CAD), CVA/TIA, Diabetes Mellitus, Deep Vein Thrombosis (DVT) Surgical - Exam Vital Signs Temp Pulse Resp BP 97.8 F 67 18 106/69 04/07/20 13:20 04/07/20 13:20 04/07/20 13:20 04/07/20 13:20 - General well developed, well nourished, no distress - Eyes PERRL - ENT normal pinna - Neck no masses - Respiratory normal expansion - Cardiovascular Rhythm: regular - Abdomen Abdomen: soft, non tender Bariatric Assessment & Plan Plan: Status post sleeve gastrectomy. Patient is doing quite well. Her GERD is minimal observed. Bariatric Checklist Checklist: Plan: Checklist: EGD: 1. Hiatal hernia: 2. H. Pylori: HgbA1c: Vitamin D: Smoking: Former smoker Primary care physician referral: Dr. Chris Valenzuela Psychiatry clearance: Cardiology clearance: Sleep study: Diet journal: VTE risk score: VTE risk level: Rehab needs at discharge:
== END | disposition home or self-care (01) ==
LOC: BARWHC3 13:01
PROVIDERS: ATTEND Surgery
DX: Z48.815 Encounter for surgical aftercare following surgery on the digestive system (principal); K21.9 Gastro-esophageal reflux disease without esophagitis; E66.01 Morbid (severe) obesity due to excess calories; Z98.84 Bariatric surgery status; Z90.49 Acquired absence of other specified parts of digestive tract; Z98.890 Other specified postprocedural states; Z68.23 Body mass index [BMI] 23.0-23.9, adult
CPT/HCPCS: 97803; G0463; 99211

== ENCOUNTER → 2020-06-02 | Outpatient (CLI) | payer OTHER ==
[2020-06-02 13:08] VITALS: BP 106/72; PULSE 92; RESP 18; TEMP 97.9; BMI 22.7
--- NOTE | 2020-06-02 15:08 | P.HPBAR ---
Bariatric H&P - History & Physicial H&P Date: 06/02/20 History & Physicial: Visit/CC: follow up Patient initial contact: Initial weight: 119.748 kg Initial weight in pounds: 264.00 Height: 5 ft 7 in Initial BMI: 41.3 Last weight: Current weight: 65.771 kg Current weight in pounds: 145.00 Current BMI: 22.7 [place] body weight (based on NIH guidelines): 61.235 kg Excess body weight loss: 92.2% The patient is a 40 year-old F who presents for Bariatric Assessment. Patient presents today for sleeve gastrectomy fall. She's had some mild GERD. She's had excellent weight loss. Past Medical History Past Medical History: Asthma, Diabetes Mellitus, GERD/Reflux, Hyperlipidemia Additional Past Medical History / Comment(s): "Sport induced asthma." Migraines. History of Any Multi-Drug Resistant Organisms: None Reported Past Surgical History: Bariatric Surgery, Section, Cholecystectomy, Ear Surgery, Hysterectomy, Tubal Ligation Additional Past Surgical History / Comment(s): RECONSTRUCTION OF RIGHT EAR DRUM;. Gastric sleeve 03/28/19 (Dr. Madison) Past Anesthesia/Blood Transfusion Reactions: Motion Sickness Past Psychological History: ADD/ADHD, Depression Additional Psychological History / Comment(s): ADHD. Smoking Status: Unknown if ever smoked Past Alcohol Use History: None Reported Additional Past Alcohol Use History / Comment(s): Quit smoking 16 yrs ago, smoked socially as a teenager. Past Drug Use History: None Reported - Past Family History Mother Family Medical History: Coronary Artery Disease (CAD), CVA/TIA, Diabetes Mellitus, Deep Vein Thrombosis (DVT) Surgical - Exam Vital Signs Temp Pulse Resp BP 97.9 F 92 18 106/72 06/02/20 13:04 06/02/20 13:04 06/02/20 13:04 06/02/20 13:04 - General well developed, well nourished, no distress - Eyes PERRL - ENT normal pinna - Neck no masses - Respiratory normal expansion - Cardiovascular Rhythm: regular - Abdomen Abdomen: soft, non tender Bariatric Assessment & Plan Plan: Sleeve gastrectomy. Patient is minimal, she will be observed. follow-up in 4 weeks. Bariatric Checklist Checklist: Plan: Checklist: EGD: 1. Hiatal hernia: 2. H. Pylori: HgbA1c: Vitamin D: Smoking: Former smoker Primary care physician referral: Dr. Chris Valenzuela Psychiatry clearance: Cardiology clearance: Sleep study: Diet journal: VTE risk score: VTE risk level: Rehab needs at discharge:
== END | disposition home or self-care (01) ==
LOC: BARWHC3 12:55
PROVIDERS: ATTEND Surgery
DX: Z48.815 Encounter for surgical aftercare following surgery on the digestive system (principal); K21.9 Gastro-esophageal reflux disease without esophagitis; Z98.84 Bariatric surgery status; Z87.891 Personal history of nicotine dependence
CPT/HCPCS: 99211

== ENCOUNTER 2020-09-24 20:26 | Emergency (ER) | payer OTHER ==
[2020-09-24] MEDS ORDERED: KETOROLAC 15 MG/ML 1 ML VIAL IM STA (20:38)
--- NOTE | 2020-09-24 21:09 | ED ---
General Adult HPI - General Chief complaint: Extremity Injury, Lower Stated complaint: RT thumb pain Time Seen by Provider: 09/24/20 20:33 Source: patient, RN notes reviewed Mode of arrival: ambulatory Limitations: no limitations - History of Present Illness Initial comments: Patient is a 40-year-old female that presents to emergency with right thumb pa in. She notes pain is been ongoing for several months but is recently got bed note that she came in to get evaluated. 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 She denied any injury or trauma to that thumb. She does have some tenderness over the anatomical snuffbox. She denied any weakness numbness tingling decreased range of motion or strength in that thumb. She notes the pain is approximately an 8 out of 10 constant. - Related Data Home Medications Medication Instructions Recorded Confirmed buPROPion HCL [Wellbutrin XL] 300 mg PO DAILY 04/04/19 06/02/20 Calcium Citrate 1,200 mg PO DAILY 05/21/19 06/02/20 Cyanocobalamin/Cobamamide [Vitamin 1 tab PO DAILY 06/25/19 06/02/20 B-12 5,000 Mcg Tab Sl] Biotin 5 mg PO DIRECTED 02/04/20 06/02/20 Dextroamphetamine/Amphetamine 20 mg PO DAILY 02/04/20 06/02/20 [Adderall] Multivitamins, Thera [Multivitamin 1 tab PO DAILY 04/07/20 06/02/20 (formulary)] Previous Rx's Medication Instructions Recorded Omeprazole 40 mg PO DAILY #30 cap 03/30/19 Allergies Allergy/AdvReac Type Severity Reaction Status Date / Time Penicillins Allergy Anaphylaxis Verified 09/24/20 20:30 Sulfa (Sulfonamide Allergy Unknown Verified 09/24/20 20:30 Antibiotics) Review of Systems ROS Statement: Those systems with pertinent positive or pertinent negative responses have been documented in the HPI. ROS Other: All systems not noted in ROS Statement are negative. Past Medical History Past Medical History: Asthma, Diabetes Mellitus, GERD/Reflux, Hyperlipidemia Additional Past Medical History / Comment(s): "Sport induced asthma." Migraines. History of Any Multi-Drug Resistant Organisms: None Reported Past Surgical History: Bariatric Surgery, Section, Cholecystectomy, Ear Surgery, Hysterectomy, Tubal Ligation Additional Past Surgical History / Comment(s): RECONSTRUCTION OF RIGHT EAR DRUM;. Gastric sleeve 03/28/19 (Dr. Madison) Past Anesthesia/Blood Transfusion Reactions: Motion Sickness Past Psychological History: ADD/ADHD, Depression Smoking Status: Never smoker Past Alcohol Use History: None Reported Past Drug Use History: None Reported - Past Family History Mother Family Medical History: Coronary Artery Disease (CAD), CVA/TIA, Diabetes Mellitus, Deep Vein Thrombosis (DVT) General Exam Limitations: no limitations General appearance: alert, in no apparent distress Head exam: Present: atraumatic, normocephalic, normal inspection Eye exam: Present: normal appearance, PERRL, EOMI. Absent: scleral icterus, conjunctival injection, periorbital swelling Neck exam: Present: normal inspection Respiratory exam: Present: normal lung sounds bilaterally. Absent: respiratory distress, wheezes, rales, rhonchi, stridor Cardiovascular Exam: Present: regular rate, normal rhythm, normal heart sounds. Absent: systolic murmur, diastolic murmur, rubs, gallop, clicks Extremities exam: Present: normal inspection, full ROM, normal capillary refill, other (Positive for WHAT test on right). Absent: tenderness, pedal edema, joint swelling, calf tenderness Neurological exam: Present: alert, oriented X3, CN II-XII intact Psychiatric exam: Present: normal affect, normal mood Skin exam: Present: warm, dry, intact, normal color. Absent: rash Course Vital Signs 09/24/20 20:28 Temperature 98.0 F Pulse Rate 76 Respiratory 20 Rate Blood Pressure 107/67 O2 Sat by Pulse 98 Oximetry Medical Decision Making - Medical Decision Making 40-year-old female complaining of right thumb pain that been going on for several months. X-ray of the right thumb, 15 mg of Toradol ordered. Extremities negative for any acute fractures or dislocations. Case discussed with Dr. James, patient can discharge home with follow-up to Primary care. - Radiology Data Radiology results: report reviewed, image reviewed Right thumb x-ray: Negative for any acute fractures dislocations. Disposition Clinical Impression: De Quervain's disease (radial styloid tenosynovitis) Disposition: HOME SELF-CARE Condition: Stable Instructions (If sedation given, give patient instructions): De Quervain Disease (ED) Additional Instructions: Please return to the Emergency Department if symptoms worsen or any other concerns. Can purchase [id number] thumb spica splint to wear at night to allow healing. Use as tolerated throughout the day Wear splint as needed. Take Tylenol Motrin for symptomatic control. Follow-up with hand specialist if pain persists. Is patient prescribed a controlled substance at d/c from ED?: No Referrals: Chris Valenzuela MD [Primary Care Provider] - 1-2 days Mahin Powell DO [Doctor of Osteopathic Medicine] - 1-2 days Time of Disposition: 21:14
--- NOTE | 2020-09-24 21:14 | XR ---
EXAMINATION TYPE: XR finger RT DATE OF EXAM: 09/24/2020 COMPARISON: NONE HISTORY: Thumb pain TECHNIQUE: 3 views FINDINGS: I see no fracture nor dislocation. Joint spaces are normal. There is no sign of a foreign b carlos alberto. IMPRESSION: Negative right thumb exam.
[2020-09-24 21:31] VITALS: BP 97/61; PULSE 73; RESP 14; TEMP 98
== END 2020-09-24 21:31 | disposition home or self-care (01) ==
LOC: EC 20:26
DX: M65.4 Radial styloid tenosynovitis [de Quervain] (principal); E11.9 Type 2 diabetes mellitus without complications; E78.5 Hyperlipidemia, unspecified; F32.9 Major depressive disorder, single episode, unspecified; F90.9 Attention-deficit hyperactivity disorder, unspecified type; J45.909 Unspecified asthma, uncomplicated; K21.9 Gastro-esophageal reflux disease without esophagitis; Z90.49 Acquired absence of other specified parts of digestive tract; Z90.710 Acquired absence of both cervix and uterus; Z98.51 Tubal ligation status
CPT/HCPCS: 73140; 99283; 96372; J1885

== ENCOUNTER → 2020-11-24 | Outpatient (CLI) | payer OTHER ==
[2020-11-24 14:33] VITALS: BP 118/73; PULSE 76; RESP 18; TEMP 98.3; BMI 25.9
--- NOTE | 2020-11-24 16:21 | P.HPBAR ---
Bariatric H&P - History & Physicial H&P Date: 11/24/20 History & Physicial: Visit/CC: follow up Patient initial contact: Initial weight: 119.748 kg Initial weight in pounds: 264.00 Height: 5 ft 7 in Initial BMI: 41.3 Last weight: Current weight: 75.296 kg Current weight in pounds: 166.00 Current BMI: 25.9 [place] body weight (based on NIH guidelines): 61.235 kg Excess body weight loss: 75.9% The patient is a 40 year-old F who presents for Bariatric Assessment. Patient presents today for sleeve gastrectomy follow-up. She's done extremely well. She has gained some weight over the last few months. She has had some mild GERD. Past Medical History Past Medical History: Asthma, Diabetes Mellitus, GERD/Reflux, Hyperlipidemia Additional Past Medical History / Comment(s): "Sport induced asthma." Migraines. History of Any Multi-Drug Resistant Organisms: None Reported Past Surgical History: Bariatric Surgery, Section, Cholecystectomy, Ear Surgery, Hysterectomy, Tubal Ligation Additional Past Surgical History / Comment(s): RECONSTRUCTION OF RIGHT EAR DRUM;. Gastric sleeve 03/28/19 (Dr. Madison) Past Anesthesia/Blood Transfusion Reactions: Motion Sickness Past Psychological History: ADD/ADHD, Depression Additional Psychological History / Comment(s): ADHD. Smoking Status: Never smoker Past Alcohol Use History: None Reported Additional Past Alcohol Use History / Comment(s): Quit smoking 16 yrs ago, smoked socially as a teenager. Past Drug Use History: None Reported - Past Family History Mother Family Medical History: Coronary Artery Disease (CAD), CVA/TIA, Diabetes Mellitus, Deep Vein Thrombosis (DVT) Surgical - Exam Vital Signs Temp Pulse Resp BP 98.3 F 76 18 118/73 11/24/20 14:16 11/24/20 14:16 11/24/20 14:16 11/24/20 14:16 - General well developed, well nourished, no distress - Eyes PERRL - ENT normal pinna - Neck no masses - Respiratory normal expansion - Cardiovascular Rhythm: regular - Abdomen Abdomen: soft, non tender Bariatric Assessment & Plan Plan: Status post sleeve gastric. Patient's creatinine is minimal will be observed. She'll follow-up in 4 weeks. Bariatric Checklist Checklist: Plan: Checklist: EGD: 1. Hiatal hernia: 2. H. Pylori: HgbA1c: Vitamin D: Smoking: Former smoker Primary care physician referral: Dr. Chris Valenzuela Psychiatry clearance: Cardiology clearance: Sleep study: Diet journal: VTE risk score: VTE risk level: Rehab needs at discharge:
== END ==
LOC: BARWHC3 13:34
PROVIDERS: ATTEND Surgery
DX: Z09 Encounter for follow-up examination after completed treatment for conditions other than malignant neoplasm (principal); K21.9 Gastro-esophageal reflux disease without esophagitis; J45.909 Unspecified asthma, uncomplicated; E78.5 Hyperlipidemia, unspecified; E11.9 Type 2 diabetes mellitus without complications; Z98.84 Bariatric surgery status; F90.9 Attention-deficit hyperactivity disorder, unspecified type; Z87.891 Personal history of nicotine dependence; Z88.0 Allergy status to penicillin; Z88.2 Allergy status to sulfonamides; R79.89 Other specified abnormal findings of blood chemistry
CPT/HCPCS: 99211

== ENCOUNTER → 2020-12-29 | Outpatient (CLI) | payer OTHER ==
[2020-12-29 13:20] VITALS: BP 100/64; PULSE 77; RESP 16; TEMP 98.6; BMI 27.1
--- NOTE | 2020-12-29 15:41 | P.HPBAR ---
Bariatric H&P - History & Physicial H&P Date: 12/29/20 History & Physicial: Visit/CC: f/u Patient initial contact: Initial weight: 119.748 kg Initial weight in pounds: 264.00 Height: 5 ft 7 in Initial BMI: 41.3 Last weight: Current weight: 78.471 kg Current weight in pounds: 173.00 Current BMI: 27.1 [place] body weight (based on NIH guidelines): 61.235 kg Excess body weight loss: 70.5% The patient is a 40 year-old F who presents for Bariatric Assessment. Patient presents today for bariatric follow-up. She's had some weight gain. She's had some minimal GERD. Past Medical History Past Medical History: Asthma, Diabetes Mellitus, GERD/Reflux, Hyperlipidemia Additional Past Medical History / Comment(s): "Sport induced asthma." Migraines. History of Any Multi-Drug Resistant Organisms: None Reported Past Surgical History: Bariatric Surgery, Section, Cholecystectomy, Ear Surgery, Hysterectomy, Tubal Ligation Additional Past Surgical History / Comment(s): RECONSTRUCTION OF RIGHT EAR DRUM;. Gastric sleeve 03/28/19 (Dr. Madison) Past Anesthesia/Blood Transfusion Reactions: Motion Sickness Past Psychological History: ADD/ADHD, Depression Additional Psychological History / Comment(s): ADHD. Smoking Status: Never smoker Past Alcohol Use History: None Reported Additional Past Alcohol Use History / Comment(s): Quit smoking 16 yrs ago, smoked socially as a teenager. Past Drug Use History: None Reported - Past Family History Mother Family Medical History: Coronary Artery Disease (CAD), CVA/TIA, Diabetes Mellitus, Deep Vein Thrombosis (DVT) Surgical - Exam Vital Signs Temp Pulse Resp BP 98.6 F 77 16 100/64 12/29/20 13:18 12/29/20 13:18 12/29/20 13:18 12/29/20 13:18 - General well developed, well nourished, no distress - Eyes PERRL - ENT normal pinna - Neck no masses - Respiratory normal expansion - Cardiovascular Rhythm: regular - Abdomen Abdomen: soft, non tender Bariatric Assessment & Plan Plan: Status post gastric sleeve. Patient's gained weight since her last visit. She'll work of improving her calorie intake. Her GERD is minimal elevation observed. Bariatric Checklist Checklist: Plan: Checklist: EGD: 1. Hiatal hernia: 2. H. Pylori: HgbA1c: Vitamin D: Smoking: Former smoker Primary care physician referral: Dr. Chris Valenzuela Psychiatry clearance: Cardiology clearance: Sleep study: Diet journal: VTE risk score: VTE risk level: Rehab needs at discharge:
== END ==
LOC: BARWHC3 13:03
PROVIDERS: ATTEND Surgery
DX: K21.9 Gastro-esophageal reflux disease without esophagitis (principal); Z09 Encounter for follow-up examination after completed treatment for conditions other than malignant neoplasm; J45.909 Unspecified asthma, uncomplicated; E11.9 Type 2 diabetes mellitus without complications; E78.5 Hyperlipidemia, unspecified; F90.9 Attention-deficit hyperactivity disorder, unspecified type; F32.9 Major depressive disorder, single episode, unspecified; Z98.84 Bariatric surgery status; Z87.891 Personal history of nicotine dependence; Z88.0 Allergy status to penicillin; Z88.2 Allergy status to sulfonamides
CPT/HCPCS: 99211

== ENCOUNTER → 2022-02-17 | Outpatient (CLI) | payer OTHER ==
[2022-02-17 18:27] LABS: African American GFR (CKD) 118.2 (60.0-200.0); Blood Urea Nitrogen 14.3 mg/dL (9.0-27.0); Carbon Dioxide 24.8 mmol/L (20.0-27.5); Chloride 105 mmol/L (96-109); Chol/HDL Ratio 3.36 Ratio; LDL Cholesterol,Calculated 143.6 mg/dL (0.0-131.0); Potassium 3.9 mmol/L (3.5-5.5); Sodium 141 mmol/L (135-145); VLDL Calculation 13.02 mg/dL (5.00-40.00)
== END | disposition home or self-care (01) ==
LOC: LABWHC1 10:58
PROVIDERS: ATTEND Family Medicine
DX: I10 Essential (primary) hypertension (principal); Z79.899 Other long term (current) drug therapy
CPT/HCPCS: 36415; 80051; 80061; 82565; 83036; 84520

== ENCOUNTER → 2023-06-29 | Outpatient (CLI) | payer OTHER ==
--- NOTE | 2023-06-30 15:24 | MM ---
Reason for Exam: Screening (asymptomatic). Baseline mammogram. Patient History: Menarche at age 14. First Full-Term at age 23. Hysterectomy at age 37. Maternal aunt had breast cancer. Risk Values: Danya 5 year model risk: 0.6%. NCI Lifetime model risk: 8.9%. Prior Study Comparison: Patient's first Mammogram. No prior studies available for comparison. Tissue Density: The breast tissue is heterogeneously dense. This may lower the sensitivity of mammography. Findings: Analyzed By CAD. Left breast: Probable lymph node 10.6 cm from the nipple on MLO view. Right breast: There is no suspicious group of microcalcifications or new suspicious mass. Overall Assessment: Incomplete: need additional imaging evaluation, BI-RAD 0 Management: Diagnostic Breast Ultrasound of the left breast. Ultrasound for confirmation of lymph node in the upper aspect of the left breast. [facility] will attempt to contact patient to return for supplemental views and ultrasound if indicated. Patient should continue monthly self-breast exams. A clinical breast exam by your physician is recommended on an annual basis. This exam should not preclude additional follow-up of suspicious palpable abnormalities. Note on Danya scores and lifetime risk: 1. A Danya score greater than 3% is considered moderate risk. If this is the case, consider specialist referral to assess eligibility for a risk reducing agent. 2. If overall lifetime risk for the development of breast cancer is 20% or higher, the patient may qualify for future screening with alternating mammogram and breast MRI. Electronically signed and approved by: Garland Dodd DO
== END | disposition home or self-care (01) ==
LOC: RADMAMWWP 07:28
PROVIDERS: ATTEND Internal Medicine
DX: Z12.31 Encounter for screening mammogram for malignant neoplasm of breast (principal); Z80.3 Family history of malignant neoplasm of breast
CPT/HCPCS: 77063; 77067

== ENCOUNTER → 2023-07-05 | Outpatient (CLI) | payer OTHER ==
--- NOTE | 2023-07-05 08:27 | USB ---
Reason for Exam: Additional evaluation requested from abnormal screening. Patient History: Menarche at age 14. First Full-Term at age 23. Hysterectomy at age 37. Maternal aunt had breast cancer. Risk Values: Danya 5 year model risk: 0.6%. NCI Lifetime model risk: 8.9%. Technique: Method: Targeted. Prior Study Comparison: 06/29/2023 Bilateral MG 3D screening mammo w/cad, [facility]. Findings: The upper section of the breast of the left breast, the axilla of the left breast and the retroareolar of the left breast were scanned. Targeted ultrasound superior half 9:00 to 3:00 including scanning of the subareolar region and axilla. There is a benign cyst at the 1:00 position near the nipple. An additional benign-appearing low axillary tail lymph node 2:00 position, 8 cm from the nipple measuring 10 x 9 x 3 mm. No other solid or cystic lesion or axillary adenopathy. Overall Assessment: Benign, BI-RAD 2 Management: Screening Mammogram of both breasts in 1 year. A clinical breast exam by your physician is recommended on an annual basis and results should be correlated with mammographic findings. This exam should not preclude additional follow-up of suspicious palpable abnormalities. Results were given to the patient verbally at the time of exam. Electronically signed and approved by: Anna Rojas M.D. Radiologist
== END | disposition home or self-care (01) ==
LOC: RADUSWWP 06:44
PROVIDERS: ATTEND Internal Medicine
DX: N60.02 Solitary cyst of left breast (principal); R92.8 Other abnormal and inconclusive findings on diagnostic imaging of breast; Z80.3 Family history of malignant neoplasm of breast

== ENCOUNTER → 2023-11-04 | Outpatient (CLI) | payer OTHER ==
[2023-11-04 10:44] LABS: Basophils # (A) 0.08 X 10*3/uL (0.00-0.10); Basophils % (A) 1.3 %; Eosinophils # (A) 0.04 X 10*3/uL (0.04-0.35); Eosinophils % (A) 0.7 %; HCT 43.9 % (37.2-46.3); HGB 14.4 g/dL (12.0-15.0); Lymphocytes # (A) 1.82 X 10*3/uL (0.90-5.00); Lymphocytes % (A) 29.6 %; MCH 31.6 pg (27.0-32.0); MCHC 32.8 g/dL (32.0-37.0); MCV 96.3 FL (80.0-97.0); Mean Platelet Volume 9.6 FL (9.5-12.2); Monocytes # (A) 0.39 X 10*3/uL (0.20-1.00); Monocytes % (A) 6.3 %; NRBC Per 100 WBC 0 X 10*3/uL (0.00-0.01); Neutrophils % (A) 61.8 %; Platelet Count 260 X 10*3/uL (140-440); RBC 4.56 X 10*6/uL (4.10-5.20); RDW 12.2 % (11.5-14.5); WBC 6.15 X 10*3/uL (4.50-10.00)
[2023-11-04 11:23] LABS: BUN/Creat Ratio 29.29 Ratio (12.00-20.00); Blood Urea Nitrogen 20.5 mg/dL (9.0-27.0); Carbon Dioxide 24.8 mmol/L (21.6-31.8); Chloride 104 mmol/L (96-109); Chol/HDL Ratio 2.62 Ratio; Glucose 74 mg/dL (70-110); Phosphorus 4.1 mg/dL (2.4-5.1); Potassium 4.2 mmol/L (3.5-5.5); Sodium 142 mmol/L (135-145)
[2023-11-04 11:24] LABS: ALT 20 U/L (8-44); AST 19 U/L (13-35); Albumin 4.7 g/dL (3.8-4.9); Albumin/Globulin Ratio 1.81 Ratio (1.60-3.17); Alkaline Phosphatase 53 U/L (41-126); Calcium 9.9 mg/dL (8.7-10.3); Globulin 2.6 g/dL (1.6-3.3); Total Bilirubin 0.4 mg/dL (0.3-1.2); Total Protein 7.3 g/dL (6.2-8.2)
== END | disposition home or self-care (01) ==
LOC: LABWHC1 07:01
PROVIDERS: ATTEND Internal Medicine
DX: Z00.00 Encounter for general adult medical examination without abnormal findings (principal); Z79.84 Long term (current) use of oral hypoglycemic drugs; Z86.39 Personal history of other endocrine, nutritional and metabolic disease
CPT/HCPCS: 36415; 80053; 80061; 82306; 82607; 82746; 83036; 83735; 84100; 84443; 85025